=== PATIENT | male | born 1960 | race Caucasian/White ===

== ENCOUNTER → 2016-04-25 | Outpatient (CLI) | payer OTHER ==
[~2016-04-25] MED LIST: AMLO5TAB2 PO; ASPI-482 PO; ATOR20TA58; CELE200C PO; CHOL10003 PO; CYAN10005 PO; DAPA10TA; FURO-68 PO; INSU100I15 SQ; INSU100I27; INSU100V13 SQ; LINE600T PO; LISI1TAB7 PO; LISI40TA; METF500T4 PO; OMEP20CA9 PO; POTA10TA31 PO; PREG150C PO; PREG200C; SITA1TAB11; TRAM200T17
--- NOTE | 2016-04-25 16:44 | RAD ---
PROCEDURE MRI of the cervical spine without contrast 04/25/2016 HISTORY Neck pain with bilateral arm pain. TECHNIQUE Unenhanced T1 weighted, T2 weighted and inversion recovery sagittal and gradient echo and T2 weighted axial images of the cervical spine were obtained. FINDINGS Comparison study is dated 11/12/2012. Very mild lateral curvature of the cervical spine is seen convex to the left. There is slight reversal of the normal cervical lordosis. Degenerative signal changes are seen involving all of the discs of the cervical spine. Degenerative signal changes are seen within the marrow surrounding these discs. No area of abnormal signal intensity is seen involving the cervical spinal cord. At the C2-3 and C3-4 disc spaces there are mild generalized disc bulges. Degenerative changes are seen involving the uncovertebral and facet joints bilaterally. These findings do not result in significant central spinal canal or neural foraminal stenosis. At the C4-5 disc space there is a mild to moderate generalized disc bulge. This is eccentric to the right. Superimposed on this disc bulge is a right paracentral disc osteophyte complex. This measures 3 millimeters in AP diameter. Degenerative changes are seen involving the uncovertebral and facet joints, right greater than left. These findings efface the anterior and posterior CSF resulting in mild right greater than left central spinal canal stenosis without significant cord impingement. Mild right neural foraminal stenosis is seen. The left neural foramina is patent. At the C5-6 disc space there is a mild to moderate generalized disc bulge. This is eccentric to the left. Degenerative changes are seen involving the uncovertebral and facet joints, left greater than right. These findings result in mild left-sided central spinal canal stenosis without evidence of cord impingement. No neural foraminal stenosis is seen. At the C6-7 disc space there is a mild to moderate generalized disc bulge. Superimposed on this disc bulge is a right paracentral/lateral disc osteophyte complex. This measures 3 millimeters in AP diameter degenerative changes are seen involving the uncovertebral and facet joints, right greater than left. These findings do not result in significant central spinal canal stenosis. Mild to moderate right greater than left neural foraminal stenosis is seen. At the C7-T1 disc space there is a mild generalized disc bulge. This is eccentric to the right. Degenerative changes are seen involving the uncovertebral and facet joints, right greater than left. These findings do not result in significant central spinal canal or neural foraminal stenosis. The degenerative changes have increased slightly since the previous examination. IMPRESSION Degenerative changes are seen throughout the cervical spine. These findings result in mild right greater than left central spinal canal stenosis at C4-5 and mild left-sided central spinal canal stenosis at C5-6 without evidence of cord impingement. Mild right neural foraminal stenosis is seen at C4-5. Mild to moderate right greater than left neural foraminal stenosis is seen at C6-7. Electronically signed by: Uri Rosas MD (Apr 25, 2016 16:42:55)
== END | disposition home or self-care (01) ==
LOC: MRI 10:40
DX: M54.2 Cervicalgia (principal); M48.02 Spinal stenosis, cervical region
CPT/HCPCS: 72141

== ENCOUNTER → 2016-05-28 | Outpatient (CLI) | payer OTHER ==
[~2016-05-28] MED LIST changes: +INSU3INS2 SQ; +IOHEXOL 180 MG/ML 10 ML VIAL. ONE; +methylPREDNISolone ACETATE 40 MG/ML VIAL. ONE; +methylPREDNISolone ACETATE 80 MG/ML VIAL. ONE
--- NOTE | 2016-05-29 21:09 | PAIN ---
DATE OF SERVICE: 05/28/2016 DIAGNOSES: Cervical radiculopathy with cervical degenerative disk disease and cervical spinal stenosis. HISTORY OF PRESENT ILLNESS: The patient is a 55-year-old male who presents with history of chief complaint of pain at the base of the neck and right upper extremity for several years, worse over the past year or so. The patient reports the pain has been getting worse, not with any specific injury or action he is aware of, just has been gradually increasing. 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 The patient reports that with his neck and right upper extremity he is having radiation of pain into the right posterior shoulder, base of the neck, base of the head causing some headaches, lightheadedness and dizziness at times as well when the pain is at its worse, again usually with using his right upper extremity and daily activities. The patient reports it is constant, intermittent, radiating into the right arm, mostly into the hand with tingling and numbness occasionally, but not always, mostly into the shoulder and upper arm, still some pain in the mid back as well. The patient reports it as aching pain in the right arm as well. He is right handed. The patient reports it wakes him up multiple times at night, does not affect his bowel and bladder control, but does affect his ability to walk sometimes when he has some dizziness spells from headaches that come when the pain is worse in the base of the neck and the right shoulder. The patient reports he has had some chiropractic therapy which all helps significantly the day he has the therapy, but by the next day, it is right back where it was. The patient has some physical therapy in the past which was not significantly helpful that he recalls. He did have an MRI scan of the cervical spine showing degenerative changes throughout the multiple levels of the spine resulting in right greater than left central spinal canal stenosis at C4-C5, mild left-sided central spinal canal stenosis at C5-C6 without evidence of cord impingement, mild right neural foraminal stenosis at C4-C5, mild to moderate right greater than left neural foraminal stenosis at C6-C7. The patient rates his disability rate from 0 to 10, 10 being the worst is anywhere from 1-9 with family and home responsibilities, recreation, social activity, occupation, sexual behavior, self care and life support activities with flaring to 9 on a scale of 10 with all those categories, but not constantly at that level. The patient is taking Tylenol, also Nan aspirin, Nan Back and Body formula which helps some by about 10-20% at the most. The patient reports no loss of motor function, no significant radiation into left upper extremity, but significant fatigability in the right arm with activity, even getting dressed, putting his arms over his head and repetitive motions with the right hand or arm. He has not been dropping any items, but has significant fatigue in the right arm with the pain. PAST MEDICAL HISTORY: Significant for type 2 diabetes, hearing loss, hypertension, chest pain, dizziness, headaches, peripheral neuropathy in the feet, difficulty with healing ulcers in the left foot as well. PREVIOUS SURGERIES: Include ulcer surgery and hernia repair 2 years ago, foot debridement and tonsillectomy at age 10. CURRENT MEDICATIONS: Include insulin, atorvastatin, Janumet, lisinopril, Farxiga, Lyrica, tramadol, Celebrex, Zyvox, amlodipine, omeprazole, daily baby aspirin, vitamin D3 and vitamin B12. ALLERGIES: The patient is allergic to nonsteroidal anti-inflammatories, which cause swelling of his mouth. FAMILY HISTORY: Significant for diabetes. SOCIAL HISTORY: The patient does not smoke, drinks 4-6 drinks a month on average, alcoholic drinks. He is single, lives on his own in [place], [place] and works at the [employer] in [place]. REVIEW OF SYSTEMS: The patient's review of systems is positive for those items mentioned in history of present illness. All systems reviewed and otherwise negative. It is complete, full and well documented on the patient's chart. PHYSICAL EXAMINATION: VITAL SIGNS: Today, the patient's blood pressure is 126/62, pulse 83, respirations are 18, temperature 98.4 degrees Fahrenheit. Height is 6 feet, weight is 252 pounds. GENERAL: The patient is awake, alert, oriented, appropriate, very pleasant demeanor. HEENT: Shows normocephalic, atraumatic. Extraocular movements are intact and symmetrical. Oral cavity shows mucous membranes are moist and pink. Dentition is intact. NECK: Shows anterior throat supple without palpable lymphadenopathy noted. Swallow reflex is symmetrical. No previous scars are noted. CHEST: Shows normal on inspection with breath sounds clear to auscultation bilaterally. HEART: Shows S1 and S2 clear. No murmurs are auscultated. ABDOMEN: Shows no abnormalities on appearance. He is obese, soft, nontender, nondistended. No palpable organomegaly with no rebound or guarding demonstrated with palpation. BACK: The patient's back shows spine grossly in midline, normal-appearing cervical lordotic curvature, thoracic kyphotic curvature and lumbar lordotic curvature. The patient has some tattooing on the upper back and shoulders. Cervical paraspinous muscle shows some moderate tenderness with palpation throughout the upper, middle and lower distribution, worse in the middle and lower distribution, but present throughout and diffuse tenderness in a diffuse fashion. No tenderness over the spinous processes. The musculature is firm and normal in muscle girth, tender diffusely again in the middle and lower distribution, also into the right superior medial and lateral trapezius with palpation, but again no asymmetry noted from inspection on the left side. No trigger points or radiation of pain. The patient does show good rotation and motion with some minor guarding with extension and right lateral rotation, but perform this fully past 45 degrees right and left without difficulty and full forward flexion without difficulty or pain reported as well. EXTREMITIES: Upper extremities showed deep tendon reflexes at 2+ in the biceps and triceps tendons. Motor exam is strong with approximately 4 on a scale 5 with right legal paraprofessional strength and 5/5 on the left bicep and tricep flexion, likewise 4/5 on the right and 5/5 on the left, but intact. Peripheral pulses are 2+ in radial distribution. No peripheral edema is noted. No clubbing, no cyanosis. Upper extremities are warm and dry to touch, equal in color and appearance. Shoulder shrug is strong and intact without loss of strength and resistance. The patient does report pain in the base of the neck on the right side and radiating to the right posterior scapula with resistance which is relieved without resistance. Abduction of the shoulder to 90 degrees also is intact without loss of strength and resistance, but with pain in the right scapula and into the right posterior deltoid with resistance on the right side only. IMPRESSION: 1. This is a 55-year-old male with long history of approximately 3 years increasing pain in the base of the neck, right upper extremity, worse over the past year or so in radicular fashion. 2. MRI scan as noted. 3. History of hypertension. 4. History of diabetes. PLAN: Options were discussed with the patient including conservative medical management with physical therapy and interventional technique. He would like to pursue interventional techniques. We discussed a cervical epidural steroid injection using description as well as anatomical models to describe the procedure. Risks were then discussed including, but not limited to bleeding, infection, possibility of epidural hematoma and subsequent neurological compromise, dural puncture, headaches, spinal cord and/or nerve damage, side effects of steroid medication and poor results regarding pain control. The patient understands and wishes to proceed. The patient will return to the clinic in approximately 2 weeks for followup, was counseled on return appointment, activity level and side effects to be aware of. DIAGNOSES: Cervical radiculopathy with cervical spinal stenosis and cervical degenerative disk disease. PROCEDURE: Cervical epidural steroid injection in translaminar approach at the C6-C7 level with fluoroscopic guidance under sterile prep and drape using local anesthetic. Medications injected 120 mg of Depo-Medrol plus 5 mL of preservative-free normal saline and 2 mL of Isovue for contrast. CONDITION AT DISCHARGE: Stable. The patient tolerated the procedure well, had no complications. MAURO SERRANO MD DR: VERITO/gabriel JOB#: [id number] / [id number]
== END | disposition home or self-care (01) ==
LOC: PNCL 12:06
PROVIDERS: ATTEND Anesthesiology
DX: M50.123 Cervical disc disorder at C6-C7 level with radiculopathy (principal); I10 Essential (primary) hypertension; E11.9 Type 2 diabetes mellitus without complications; M48.02 Spinal stenosis, cervical region
CPT/HCPCS: 62321; J1030; J1040

== ENCOUNTER → 2016-06-09 | Outpatient (CLI) | payer OTHER ==
[~2016-06-09] MED LIST changes: -IOHEXOL 180 MG/ML 10 ML VIAL. ONE; -methylPREDNISolone ACETATE 40 MG/ML VIAL. ONE; -methylPREDNISolone ACETATE 80 MG/ML VIAL. ONE
[2016-06-09 12:30] VITALS: BP 90/63
== END | disposition home or self-care (01) ==
LOC: SPEC 16:24
PROVIDERS: ATTEND Podiatrist Foot & Ankle Surgery
DX: L03.029 Acute lymphangitis of unspecified finger (principal); E11.42 Type 2 diabetes mellitus with diabetic polyneuropathy
CPT/HCPCS: 87071; 87075; 87186; 87205

== ENCOUNTER 2016-06-13 11:26 | Inpatient (IN) | payer OTHER ==
[~2016-06-13] VITALS: Ht 182.9 cm; Wt 107.5 kg
[2016-06-13 12:00] VITALS: BP 88/55
[2016-06-13 13:00] VITALS: BP 88/55
[2016-06-13] MEDS ORDERED: HYDROCODONE/APAP 5/325MG TABLET. PO PRN (13:00)
[2016-06-13] MEDS ORDERED: ACETAMINOPHEN 325 MG TABLET. PO PRN (13:00)
[2016-06-13] MEDS ORDERED: hydrALAZINE 20 MG/ML VIAL. IVP PRN (13:00)
[2016-06-13] MEDS ORDERED: ONDANSETRON PF 4 MG/2 ML VIAL. IV PRN (13:00)
[2016-06-13] MEDS ORDERED: VANCOMYCIN PER PHARMACY MC PRN (13:00)
[2016-06-13] MEDS ORDERED: DEXTROSE 50% 25 GM / 50ML DISP.SYRIN. IV PRN (13:00)
--- NOTE | 2016-06-13 13:02 | PDOC1 ---
History and Physical Identification/Chief Complaint Chief Complaint foot wounds Problems: Past Medical History Past Medical History DM HTN NEUROPATHY Social History Smoke: No ALCOHOL: rare Current Medications Current Medications Current Medications Medications (Trade) Dose Ordered Sig/Bart Start Time Stop Time Status Last Admin Dose Admin Acetaminophen (Tylenol) 325 mg PRN Q6HRS PRN 06/13/16 13:00 UNV Acetaminophen/ Hydrocodone Bitart (Lortab 5/325) 1 tab PRN Q6HRS PRN 06/13/16 13:00 UNV Albuterol Sulfate (Ventolin Neb Soln) 2.5 mg PRN Q4HRS PRN 06/13/16 13:00 UNV Dextrose 12.5 gm 12.5 gm PRN Q15MIN PRN 06/13/16 13:00 UNV Hydralazine HCl (Apresoline) 10 mg PRN Q4HRS PRN 06/13/16 13:00 UNV Insulin Aspart (Novolog) 0-9 UNITS TIDWMEALS 06/13/16 17:00 UNV Ondansetron HCl (Zofran) 4 mg PRN Q8HRS PRN 06/13/16 13:00 UNV Piperacillin Sod/ Tazobactam Sod/ Sodium Chloride (Zosyn/Iv Sodium Chloride 0.9% 50ml) 50 ml @ 100 mls/hr Q6HRS 06/13/16 18:00 UNV Vancomycin HCl (Vanco Per Pharmacy) 1 each PRN DAILY PRN 06/13/16 13:00 UNV Allergies Allergies Allergies Coded Allergies Type Severity Reaction Last Updated Verified ibuprofen Allergy Severe SWELLING OF FACE - HIVES 06/10/16 Yes I S O L A T I O N *CONTACT* Allergy Unknown 06/10/16 Yes ROS Review of System CONSTITUTIONAL: No fever or chills EYES: No recent changes SKIN: wound foot CARDIOVASCULAR: No chest pain, syncope, palpitations, or edema RESPIRATORY: No SOB or cough GASTROINTESTINAL: No nausea, vomiting or abdominal pain NEUROLOGICAL: No headaches or weakness ENDOCRINE: No cold or heat intolerance GENITOURINARY: No urgency or frequency of urination MUSCULOSKELETAL: No back pain or joint pain LYMPHATICS: No enlarged lymph nodes PSYCHIATRIC: No anxiety or depression Physical Exam Physical Exam GEN.: No apparent distress. Alert and oriented. HEENT: Head is normocephalic, atraumatic NECK: Supple. no jvd LUNGS: Clear to auscultation. normal airflow HEART: RRR, S1, S2 present. Peripheral pulses intact ABDOMEN: Soft, nontender. Positive bowel sounds. EXTREMITIES: pulse intact, left 2nd toe ulcer at tip, right MTP wound. NEUROLOGIC: Normal speech, normal tone PSYCHIATRIC: Normal affect, normal mood. SKIN: Vitals Vitals Vital Signs Date Time Temp Pulse Resp B/P Pulse Ox O2 Delivery O2 Flow Rate FiO2 06/13/16 12:00 98.4 98 88/55 Room Air 96.0 98.4 Labs Labs Laboratory Tests Test 06/13/16 12:05 Glucose (Fingerstick) 219mg/dL (70-99) Laboratory Tests Test 06/13/16 12:05 Glucose (Fingerstick) 219mg/dL (70-99) VTE Prophylaxis Ordered VTE Prophylaxis Devices: No VTE Pharmacological Prophylaxi: No DAVID TSE MD Jun 13, 2016 13:02
[2016-06-13] MEDS ORDERED: PIPERACILLIN/TAZOBACTAM 3.375 GM in IV NORMAL SALINE 50ML 50 ML IV ONE (13:15)
[2016-06-13] MEDS ORDERED: VANCOMYCIN 2 GM in IV NORMAL SALINE 500ML BAG 500 ML IV ONE (13:30)
[2016-06-13 13:40] LABS: BASO # 0.1 x10^3/uL (0.0-0.2); BASO % 1 % (0-3); EOS % 1 % (0-3); HEMATOCRIT 43.3 % (39.0-53.0); LYMPH # 2.9 x10^3/uL (1.0-4.8); LYMPH % 22 % (24-48); MEAN CORPUSCULAR HEMOGLOBIN 29 pg (25-35); MEAN CORPUSCULAR HGB CONC 32 g/dL (31-37); MEAN CORPUSCULAR VOLUME 89 fL (79-100); MONO % 11 % (0-9); NEUT % 65 % (31-73); PLATELET COUNT 293 x10^3/uL (140-400); RED BLOOD COUNT 4.88 x10^6/uL (4.30-5.70); RED CELL DISTRIBUTION WIDTH 14.3 % (11.5-14.5)
[2016-06-13 13:54] LABS: C-REACTIVE PROTEIN 86.6 mg/L (0-3.3); CALCIUM 9.6 mg/dL (8.5-10.1); CREATININE 1.2 mg/dL (0.7-1.3); GFR 63.3
[2016-06-13 15:00] VITALS: BP 105/42
--- NOTE | 2016-06-13 15:14 | RAD ---
Portable bilateral feet, 6 views, 06/13/2016: History: Foot infection with ulcers There are degenerative changes at scattered interphalangeal joints, the first MTP joints and at the midfoot level bilaterally. No fracture or destructive bony lesion is seen. There is mild subcutaneous edema bilaterally. IMPRESSION: No acute bony abnormality is detected.
[2016-06-13] MEDS: VANCOMYCIN PER PHARMACY MC PRN (16:49)
[2016-06-13] MEDS: AMLODIPINE BESYLATE 5 MG TABLET PO SCH (17:00)
[2016-06-13] MEDS: LISINOPRIL 40 MG TABLET. PO SCH (17:00)
[2016-06-13] MEDS: ALBUTEROL SULFATE 2.5 MG/3 ML NEBU. NEB PRN (17:24)
[2016-06-13] MEDS: PANTOPRAZOLE 40 MG TABLET. PO SCH (17:31)
[2016-06-13] MEDS: INSULIN ASPART 300 UNITS/3 ML INSULN.PEN SQ SCH (17:37)
--- NOTE | 2016-06-13 17:42 | HP ---
ADMIT DATE: 06/13/2016 CHIEF COMPLAINT: Bilateral foot wounds, nonhealing. HISTORY OF PRESENT ILLNESS: A 55-year-old male patient with prior history of diabetes mellitus, hypertension, following up with Dr. Dave, for his bilateral foot wounds. He was prescribed Augmentin few days ago. On repeat examination by Dr. Dave, the patient needs inpatient hospitalization for IV antibiotics for purulent exudate coming from the right foot metacarpophalangeal joint region. He had 2 wounds, one on the left and one on the right. Right metatarsophalangeal joint has erythema, induration and purulent secretions coming and also worsening neuropathy in right extremity and also he had a left second digit nonhealing ulcer is present. He denies any fever; however, has some cough. PAST MEDICAL HISTORY: Hypertension, diabetes and polyneuropathy. FAMILY HISTORY: Mother had diabetes and non-Hodgkin lymphoma. PERSONAL HISTORY: No smoker, no alcohol, no drug abuse. REVIEW OF SYSTEMS: Please see my electronic H and P. ALLERGIES: IBUPROFEN. HOME MEDICATIONS: Reviewed and reconciled. Please see MRAD. ASSESSMENT: 1. Bilateral diabetic foot wounds, Right metacarpophalangeal joint, plantar surface and Left second digit. 2. Diabetes mellitus with hyperglycemia. 3. Hypertension. 4. Peripheral neuropathy. PLAN: 1. The patient has been admitted for med/surg floor and started on broad-spectrum antibiotics, Zosyn and vancomycin. Do renal dosing of vancomycin and he will get x-ray of the foot to rule out any osteomyelitis. 2. Infectious Disease has been consulted. 3. Dr. Dave has been consulted, possible debridement on either Thursday or Thursday. 4. Sliding scale insulin with home dose of Levemir. 5. Deep venous thrombosis prophylaxis. 6. He was treated with Augmentin at home; however, he did not improve, suspected methicillin-resistant Staphylococcus aureus infection. 7. Wound cx DAVID TSE MD DR: PB/nts JOB#: [id number] / [id number] OKD
[2016-06-13 19:00] VITALS: BP 87/53
[2016-06-13] MEDS: ATORVASTATIN CALCIUM 20 MG TABLET PO SCH (21:19)
[2016-06-13] MEDS: PREGABALIN 50 MG CAPSULE PO SCH (21:23)
[2016-06-13] MEDS: PIPERACILLIN/TAZOBACTAM 3.375 GM in IV NORMAL SALINE 50ML 50 ML IV SCH (21:23)
[2016-06-13] MEDS: TEMAZEPAM 15 MG CAPSULE PO PRN (22:33)
[2016-06-13 23:00] VITALS: BP 90/49
[2016-06-14 02:49] VITALS: BP 96/57
[2016-06-14] MEDS: VANCOMYCIN 1.5 GM in IV NORMAL SALINE 500ML BAG 500 ML IV SCH ×2 (04:00→16:19)
[2016-06-14] MEDS: PIPERACILLIN/TAZOBACTAM 3.375 GM in IV NORMAL SALINE 50ML 50 ML IV SCH ×6 (06:00→23:21)
[2016-06-14 06:53] LABS: BASO % 1 % (0-3); EOS % 2 % (0-3); HEMATOCRIT 41.2 % (39.0-53.0); HEMOGLOBIN 13.3 g/dL (13.0-17.5); LYMPH # 2.2 x10^3/uL (1.0-4.8); LYMPH % 28 % (24-48); MEAN CORPUSCULAR HEMOGLOBIN 29 pg (25-35); MEAN CORPUSCULAR HGB CONC 32 g/dL (31-37); MEAN CORPUSCULAR VOLUME 89 fL (79-100); MONO % 12 % (0-9); NEUT % 57 % (31-73); PLATELET COUNT 278 x10^3/uL (140-400); RED BLOOD COUNT 4.62 x10^6/uL (4.30-5.70); RED CELL DISTRIBUTION WIDTH 14.4 % (11.5-14.5); WHITE BLOOD COUNT 7.7 x10^3/uL (4.0-11.0)
[2016-06-14 06:59] LABS: CALCIUM 9.5 mg/dL (8.5-10.1); CREATININE 1.1 mg/dL (0.7-1.3); POTASSIUM 4.7 mmol/L (3.5-5.1)
[2016-06-14 07:00] VITALS: BP 119/78
[2016-06-14] MEDS: PANTOPRAZOLE 40 MG TABLET. PO SCH (08:18)
[2016-06-14] MEDS: PREGABALIN 50 MG CAPSULE PO SCH ×2 (08:18→21:39)
[2016-06-14] MEDS: AMLODIPINE BESYLATE 5 MG TABLET PO SCH (08:19)
[2016-06-14] MEDS: LISINOPRIL 40 MG TABLET. PO SCH (08:20)
[2016-06-14] MEDS: INSULIN ASPART 300 UNITS/3 ML INSULN.PEN SQ SCH ×3 (08:27→17:21)
[2016-06-14 11:00] VITALS: BP 92/58
[2016-06-14] MEDS: VANCOMYCIN PER PHARMACY MC PRN (12:29)
--- NOTE | 2016-06-14 14:24 | CONS ---
DATE OF CONSULTATION: 06/13/2016 DIAGNOSES: 1. Abscess with cellulitis, right plantar forefoot. 2. Clinical evidence of osteomyelitis with diabetic foot ulceration, second digit, left foot. 3. 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 HISTORY OF PRESENT ILLNESS: The patient is a 55-year-old male presented to my private clinic this morning for followup of a newly exposed bone on the second digit of the left foot and chronic ulcerations, bilateral foot. The patient has been seen in my office just 4 days ago with a new wound on the second digit, which is extending all the way down to bone. I had placed him on Augmentin at that time and applied a dressing. I advised him to follow in just 4 days. Upon presentation today, the patient had new complaints of redness, swelling and intense pain in the right forefoot. Upon questioning, he stated that he was also having flu-like symptoms with cough for the past few days and that a couple of days he was just lying in bed. He denied any fever, night sweats, chills or vomiting. He has been off work in order to attempt to ____ the wound sites and allow his wounds to heal. PHYSICAL EXAMINATION: Lower extremities vasculature: Palpable dorsalis pedis pulse bilateral foot. Palpable posterior tibial pulse bilateral foot. No pretibial or ankle edema bilateral lower extremity. No varicosities bilateral lower extremity. Integument: The left foot exhibited a deep wound about the distal aspect of the second digit of the left foot with exposed bone. The erythema and edema extends to the mid shaft region of the middle phalanx with no ascending cellulitis or lymphangitis noted on the left lower extremity. In addition, there is an open wound, plantar to the left first metatarsal head measuring 9 x 6 x 1 mm extending through the full thickness skin with no surrounding erythema, calor or induration. Regarding the right foot, there is a deep wound, plantar to the right first metatarsophalangeal joint with localized erythema and calor and induration extending just proximal to the first metatarsophalangeal joint region and mid shaft of the first metatarsal itself. This wound probed deep into the subcutaneous tissues and exhibited moderate amount of white purulent exudate which was expressed from the patient's wound today prior to swabbing for aerobic and anaerobic culture and sensitivity. Neurologically sensorium is diminished to sharp on light touch. The patient has lost his protective sense. Musculoskeletally evidence of exposed bone, distal phalanx, second digit, left foot. Flexion contracture of the interphalangeal joints ____ digits bilateral foot. RECOMMENDATIONS: The patient's wound was incised and debrided on the right foot as noted above and cultured for aerobic and anaerobic culture and sensitivity. In addition, I spoke with Dr. Hernandez, the hospitalist from my clinic who directly admit the patient onto his service. He also agreed to an Infectious Disease consultation as the patient was just in the hospital 2 months ago with MRSA. As this wound is not responding to Augmentin, which the patient has been on for 4 days and with the purulent exudate, this may well be MRSA again. At bedside today near 4:15 in the afternoon, I visited the patient, at which time, I used a sterile 10 blade after an alcohol prep to incise approximately another 0.5 cm of the plantar wound site in order to access the underlying abscess. A small amount of purulent exudate was expressed. Next, I utilized a pressurized saline and ____ in order to irrigate the wound base. I then inserted Aquacel Ag drain into the wound, covered by a gauze compression dressing. The left foot wounds were also dressed with Aquacel Ag and a gauze dressing. These are to be maintained until I follow with the patient on Thursday. The IV antibiotic was running at the time of my visit: The patient was already feeling better. I have scheduled him for a partial amputation of the second digit of the left foot this Thursday06/17/2016 at [facility]. Ordered n.p.o. after midnight. In addition, it should be noted that I reviewed his x-rays interpreted by radiologist with no signs of a bony infection. I will follow on Thursday barring any complaints or calls from the nursing staff in the meantime. YESICA PAINTER DPM DR: TERESA/gabriel JOB#: [id number] / [id number]
[2016-06-14 15:00] VITALS: BP 113/70
--- NOTE | 2016-06-14 15:25 | PDOC ---
PROGRESS NOTES Chief Complaint Chief Complaint Diabetic foot ulcers ASSESSMENT AND PLAN: 1. Bilateral diabetic foot wounds, (R metacarpophalangeal joint, plantar surface, and L second digit.) s/p debridement in office by Dr Dave on 06/12. nonhealing, with hx MRSA, and nonresponse to PO Abx at home. on Zosyn/Vanco, ID consult pending. no bony abn noted on Xrays. 2. DM2: fair control.on oral meds as well as levemir. hold janumet (metformin ) for now, cont trajenta, re-start insulin, plus ISS 3. diabetic neuropathy: on lyrica 4. HTN: well controlled on multi-drug home regimen. continue 5. HLD: on statin 6. Prophylaxis: lovenox Vitals Vitals Vital Signs Date Time Temp Pulse Resp B/P Pulse Ox O2 Delivery O2 Flow Rate FiO2 06/14/16 11:00 97.8 84 20 92/58 98 Room Air 97.8 Physical Exam General: Alert, Oriented X3, Cooperative Heart: Regular rate Lungs: Clear Abdomen: Normal bowel sounds, No tenderness, No masses Extremities: Other (B distal feet in gauze) Labs LABS Laboratory Tests Test 06/13/16 17:16 06/13/16 20:40 06/14/16 06:10 06/14/16 07:30 Glucose (Fingerstick) 207mg/dL (70-99) 236mg/dL (70-99) 175mg/dL (70-99) White Blood Count 7.7x10^3/uL (4.0-11.0) Red Blood Count 4.62x10^6/uL (4.30-5.70) Hemoglobin 13.3g/dL (13.0-17.5) Hematocrit 41.2% (39.0-53.0) Mean Corpuscular Volume 89fL (79-100) Mean Corpuscular Hemoglobin 29pg (25-35) Mean Corpuscular Hemoglobin Concent 32g/dL (31-37) Red Cell Distribution Width 14.4% (11.5-14.5) Platelet Count 278x10^3/uL (140-400) Neutrophils (%) (Auto) 57% (31-73) Lymphocytes (%) (Auto) 28% (24-48) Monocytes (%) (Auto) 12% (0-9) Eosinophils (%) (Auto) 2% (0-3) Basophils (%) (Auto) 1% (0-3) Neutrophils # (Auto) 4.4x10^3uL (1.8-7.7) Lymphocytes # (Auto) 2.2x10^3/uL (1.0-4.8) Monocytes # (Auto) 0.9x10^3/uL (0.0-1.1) Eosinophils # (Auto) 0.2x10^3/uL (0.0-0.7) Basophils # (Auto) 0.0x10^3/uL (0.0-0.2) Sodium Level 139mmol/L (136-145) Potassium Level 4.7mmol/L (3.5-5.1) Chloride Level 101mmol/L (98-107) Carbon Dioxide Level 27mmol/L (21-32) Anion Gap 11 (6-14) Blood Urea Nitrogen 26mg/dL (8-26) Creatinine 1.1mg/dL (0.7-1.3) Estimated GFR (Cockcroft-Gault) 70.0 Glucose Level 191mg/dL (70-99) Calcium Level 9.5mg/dL (8.5-10.1) Test 06/14/16 10:57 Glucose (Fingerstick) 182mg/dL (70-99) Review of Systems Review of Systems doing ok, although not happy to be back in hospital Comment Review of Relevant ISABELA CARIAS MD Jun 14, 2016 15:25
--- NOTE | 2016-06-14 15:57 | PDOC ---
Infectious Disease Note Vital Sign Vital Signs Vital Signs Date Time Temp Pulse Resp B/P Pulse Ox O2 Delivery O2 Flow Rate FiO2 06/14/16 15:00 97.4 85 20 113/70 91 Room Air 97.4 Labs Lab Laboratory Tests Test 06/13/16 17:16 06/13/16 20:40 06/14/16 06:10 06/14/16 07:30 Glucose (Fingerstick) 207mg/dL (70-99) 236mg/dL (70-99) 175mg/dL (70-99) White Blood Count 7.7x10^3/uL (4.0-11.0) Red Blood Count 4.62x10^6/uL (4.30-5.70) Hemoglobin 13.3g/dL (13.0-17.5) Hematocrit 41.2% (39.0-53.0) Mean Corpuscular Volume 89fL (79-100) Mean Corpuscular Hemoglobin 29pg (25-35) Mean Corpuscular Hemoglobin Concent 32g/dL (31-37) Red Cell Distribution Width 14.4% (11.5-14.5) Platelet Count 278x10^3/uL (140-400) Neutrophils (%) (Auto) 57% (31-73) Lymphocytes (%) (Auto) 28% (24-48) Monocytes (%) (Auto) 12% (0-9) Eosinophils (%) (Auto) 2% (0-3) Basophils (%) (Auto) 1% (0-3) Neutrophils # (Auto) 4.4x10^3uL (1.8-7.7) Lymphocytes # (Auto) 2.2x10^3/uL (1.0-4.8) Monocytes # (Auto) 0.9x10^3/uL (0.0-1.1) Eosinophils # (Auto) 0.2x10^3/uL (0.0-0.7) Basophils # (Auto) 0.0x10^3/uL (0.0-0.2) Sodium Level 139mmol/L (136-145) Potassium Level 4.7mmol/L (3.5-5.1) Chloride Level 101mmol/L (98-107) Carbon Dioxide Level 27mmol/L (21-32) Anion Gap 11 (6-14) Blood Urea Nitrogen 26mg/dL (8-26) Creatinine 1.1mg/dL (0.7-1.3) Estimated GFR (Cockcroft-Gault) 70.0 Glucose Level 191mg/dL (70-99) Calcium Level 9.5mg/dL (8.5-10.1) Test 06/14/16 10:57 Glucose (Fingerstick) 182mg/dL (70-99) Objective Assessment Cellulitis and abscess of diabetic wound of right foot. s/p I and D. Staph aureus Infected diabetic wound with bone exposure of 2nd digit of left foot. Chronic nonhealing diabetic wounds, bilateral feet Diabetes with neuropathy URI Plan Plan of Care Continue vancomycin and Zosyn Pt scheduled for partial amputation of 2nd toe of left foot on Thursday. Monitor WBC, Cr and temp f/u cultures Supportive care Thank you Patient seen and examined. Chart reviewed. Case discussed with INTERNATIONAL MARKETING MANAGER. Agree with above plan ELIZABETH LAYTON APRN Jun 14, 2016 15:57 JAMEL JOSEPH MD Jun 14, 2016 16:55
[2016-06-14 20:10] VITALS: BP 97/60
[2016-06-14] MEDS: ATORVASTATIN CALCIUM 20 MG TABLET PO SCH (21:39)
[2016-06-14] MEDS: TEMAZEPAM 15 MG CAPSULE PO PRN (21:40)
[2016-06-14] MEDS: INSULIN DETEMIR 300 UNITS/3 ML INSULN.PEN. SQ SCH (21:49)
[2016-06-14 23:05] VITALS: BP 97/69
--- NOTE | 2016-06-15 01:51 | CONS ---
DATE OF CONSULTATION: REFERRING PHYSICIAN: Dr. Julio Hernandez. REASON FOR CONSULTATION: Questionable osteomyelitis of foot. HISTORY OF PRESENT ILLNESS: This patient is a 55-year-old male with a history of diabetes mellitus and peripheral neuropathy. He is followed by Dr. Dave, Podiatry for chronic nonhealing ulcerations of both feet. Recently, he developed another ulceration at the left second toe, which became red and swollen with bone exposure. He was taking Augmentin without improvement. X-ray showed no acute bony abnormalities. He underwent a bedside I and D of the left second toe. He is scheduled for a partial amputation on 06/17/2016. In addition, he underwent a bedside I and D of the right plantar wound, which was noted to be deep into subcutaneous tissues with purulent drainage. A culture is growing Staphylococcus aureus. He has a prior history of MRSA infection of the left foot in 03/2016. PAST MEDICAL HISTORY: MRSA infection of the left foot in 03/2016, diabetes mellitus, peripheral neuropathy, hypertension, and hypercholesterolemia. PAST SURGICAL HISTORY: Hernia repair, cardiac catheterization, and tonsillectomy. FAMILY HISTORY: Positive for diabetes mellitus and cancer. SOCIAL HISTORY: The patient lives at home. He has been out of work due to his diabetes. He normally works at the [employer] standing all day. Nonsmoker, however, he is exposed to secondhand smoke. ALLERGIES: IBUPROFEN. MEDICATIONS: Vancomycin and Zosyn. Other medications are available and had been reviewed on the JUN. REVIEW OF SYSTEMS: The patient verbalized discomfort at the moment. He has decreased sensation in both feet. Denies trauma or injury. His glucose readings had been running in the 200s. Denies headache, nasal/sinus congestion or sore throat. Over the past couple of days, he has had a cough and flu-like symptoms. Denies fevers, chills or aches. Denies nausea, vomiting or diarrhea. Denies rash. PHYSICAL EXAMINATION: GENERAL: male, propped up in bed, in no apparent distress. VITAL SIGNS: Afebrile. Stable. HEENT: Pupils equally round. Normal conjunctivae. Oral mucosa is pink and moist. NECK: Supple. LUNGS: Clear to auscultation. CARDIOVASCULAR: Normal S1 and S2. ABDOMEN: Nondistended, bowel sounds present, soft and nontender. EXTREMITIES: No gross edema or cyanosis. Dressings on both feet are dry and intact with instructions not to remove. Pictures were reviewed in chart. SKIN: Without rash. Warm to touch. NEUROLOGIC: Alert and oriented x 3. Moves all extremities. LABORATORY DATA: Today's WBC 7.1 from 13.0 on admission, hemoglobin 13.3, and platelet count 278,000. Sed rate 43. Electrolytes were unremarkable. Creatinine 1.1, BUN 26, and glucose 191. CRP 86.6. Wound culture is growing Staphylococcus aureus. Sensitivities pending. Bilateral foot x-ray shows mild subcutaneous edema without acute bony abnormalities. ASSESSMENT: 1. Cellulitis and abscess of diabetic wound of right foot, status post incision and drainage. 2. Infected diabetic wound with bone exposure of the second digit of left foot. 3. Staphylococcus aureus. 4. Diabetes with neuropathy. 5. Chronic nonhealing diabetic wounds, bilateral feet. 6. Upper respiratory infection. PLAN: Continue the vancomycin and Zosyn. The patient is scheduled for partial amputation of the second toe of left foot on Thursday. Monitor WBC count, creatinine, and temperature. Await sensitivities. Consider arterial studies. Supportive care. Thank you, Dr. David Jennings for asking me to participate in this patient's care. Should you have further questions or concerns, please call. The patient is seen and examined, plan of care implemented by Dr. Jamel Joseph. JAMEL JOSEPH MD DR: CHIDI/gabriel JOB#: [id number] / [id number] VENECIA
[2016-06-15 03:23] VITALS: BP 122/82
[2016-06-15 05:29] LABS: BASO # 0.1 x10^3/uL (0.0-0.2); BASO % 1 % (0-3); EOS % 2 % (0-3); HEMATOCRIT 41.4 % (39.0-53.0); HEMOGLOBIN 13.7 g/dL (13.0-17.5); LYMPH # 2.3 x10^3/uL (1.0-4.8); LYMPH % 25 % (24-48); MEAN CORPUSCULAR HEMOGLOBIN 29 pg (25-35); MEAN CORPUSCULAR HGB CONC 33 g/dL (31-37); MEAN CORPUSCULAR VOLUME 88 fL (79-100); MONO % 10 % (0-9); NEUT % 63 % (31-73); PLATELET COUNT 328 x10^3/uL (140-400); RED BLOOD COUNT 4.69 x10^6/uL (4.30-5.70); WHITE BLOOD COUNT 9.1 x10^3/uL (4.0-11.0)
[2016-06-15] MEDS: PIPERACILLIN/TAZOBACTAM 3.375 GM in IV NORMAL SALINE 50ML 50 ML IV SCH ×4 (05:43→23:52)
[2016-06-15 05:44] LABS: CALCIUM 9.6 mg/dL (8.5-10.1); CREATININE 0.9 mg/dL (0.7-1.3); GFR 88.3; POTASSIUM 4.6 mmol/L (3.5-5.1)
[2016-06-15] MEDS: VANCOMYCIN PER PHARMACY MC PRN ×4 (06:09→13:29)
[2016-06-15 07:00] VITALS: BP 124/81
[2016-06-15] MEDS: VANCOMYCIN 1.5 GM in IV NORMAL SALINE 500ML BAG 500 ML IV SCH ×2 (07:28→15:40)
[2016-06-15] MEDS: INSULIN ASPART 300 UNITS/3 ML INSULN.PEN SQ SCH ×3 (08:00→17:41)
[2016-06-15] MEDS: PREGABALIN 50 MG CAPSULE PO SCH ×2 (09:22→21:12)
[2016-06-15] MEDS: PANTOPRAZOLE 40 MG TABLET. PO SCH (09:23)
[2016-06-15] MEDS: AMLODIPINE BESYLATE 5 MG TABLET PO SCH (09:23)
[2016-06-15] MEDS: LISINOPRIL 40 MG TABLET. PO SCH (09:24)
[2016-06-15 11:00] VITALS: BP 135/89
--- NOTE | 2016-06-15 12:00 | PDOC ---
Infectious Disease Note Subjective Subjective Comfortable, denies pain Dressings recently changed Less cough ROS ROS GEN: Denies fevers, chills, sweats HEENT: Denies sore throat CV: Denies chest pain RESP: Denies shortness of air GI: Denies n/v/d Vital Sign Vital Signs Vital Signs Date Time Temp Pulse Resp B/P Pulse Ox O2 Delivery O2 Flow Rate FiO2 06/15/16 11:00 97.5 86 20 135/89 97 Room Air 97.5 Physical Exam PHYSICAL EXAM GENERAL: Propped up in bed, relaxed appearance HENT: Op/OC clear NECK: Supple. LUNGS: Clear to auscultation. CARDIOVASCULAR: Normal S1 and S2. ABDOMEN: Nondistended, bowel sounds present, soft and nontender. EXTREMITIES: No gross edema or cyanosis. Dressings on both feet are dry and intact. Recently changed. SKIN: Without rash. Warm to touch. NEUROLOGIC: Alert and oriented x 3. Moves all extremities. Peripheral IV: ok Labs Lab Laboratory Tests Test 06/14/16 16:18 06/14/16 21:38 06/15/16 05:10 06/15/16 07:37 Glucose (Fingerstick) 237mg/dL (70-99) 225mg/dL (70-99) 146mg/dL (70-99) White Blood Count 9.1x10^3/uL (4.0-11.0) Red Blood Count 4.69x10^6/uL (4.30-5.70) Hemoglobin 13.7g/dL (13.0-17.5) Hematocrit 41.4% (39.0-53.0) Mean Corpuscular Volume 88fL (79-100) Mean Corpuscular Hemoglobin 29pg (25-35) Mean Corpuscular Hemoglobin Concent 33g/dL (31-37) Red Cell Distribution Width 14.0% (11.5-14.5) Platelet Count 328x10^3/uL (140-400) Neutrophils (%) (Auto) 63% (31-73) Lymphocytes (%) (Auto) 25% (24-48) Monocytes (%) (Auto) 10% (0-9) Eosinophils (%) (Auto) 2% (0-3) Basophils (%) (Auto) 1% (0-3) Neutrophils # (Auto) 5.7x10^3uL (1.8-7.7) Lymphocytes # (Auto) 2.3x10^3/uL (1.0-4.8) Monocytes # (Auto) 0.9x10^3/uL (0.0-1.1) Eosinophils # (Auto) 0.2x10^3/uL (0.0-0.7) Basophils # (Auto) 0.1x10^3/uL (0.0-0.2) Sodium Level 138mmol/L (136-145) Potassium Level 4.6mmol/L (3.5-5.1) Chloride Level 102mmol/L (98-107) Carbon Dioxide Level 27mmol/L (21-32) Anion Gap 9 (6-14) Blood Urea Nitrogen 20mg/dL (8-26) Creatinine 0.9mg/dL (0.7-1.3) Estimated GFR (Cockcroft-Gault) 88.3 Glucose Level 174mg/dL (70-99) Calcium Level 9.6mg/dL (8.5-10.1) Vancomycin Level Trough 15.3mcg/mL (10.0-20.0) Vancomycin Last Dose Date 06/14/16 Vancomycin Last Dose Time 1619 Test 06/15/16 10:49 Glucose (Fingerstick) 183mg/dL (70-99) Micro AEROBIC RES 1 Final Methicillin - resistant Staphylococcus aureus Antibiotic RSLT#1 Ciprofloxacin S<=0.5 Clindamycin S<=0.25 Erythromycin R>=8 Gentamicin R>=16 Levofloxacin S =0.25 Linezolid S =2 Oxacillin R>=4 Penicillin R>=0.5 Rifampin S<=0.5 Tetracycline S<=1 Trimethoprim/Sulfa S<=10 Vancomycin S =1 Objective Assessment Cellulitis and abscess of diabetic wound of right foot. s/p I and D. MRSA Infected diabetic wound with bone exposure of 2nd digit of left foot. Chronic nonhealing diabetic wounds, bilateral feet Diabetes with neuropathy URI Plan Plan of Care Continue vancomycin and Zosyn Pt scheduled for partial amputation of 2nd toe of left foot on Thursday. Monitor WBC, Cr and temp f/u cultures Supportive care Patient seen and examined. Chart reviewed. Case discussed with DRY DRUG WORKER. Agree with above plan ELIZABETH LAYTON APRN Jun 15, 2016 12:00 JAMEL JOSEPH MD Jun 15, 2016 17:33
[2016-06-15 15:00] VITALS: BP 110/69
--- NOTE | 2016-06-15 15:02 | PDOC ---
PROGRESS NOTES Chief Complaint Chief Complaint Diabetic foot ulcers ASSESSMENT AND PLAN: 1. Bilateral diabetic foot wounds, (R metacarpophalangeal joint, plantar surface, and L second digit.) s/p debridement in office by Dr Dave on 06/12. to bone. no bony abn noted on Xrays, but nonhealing, with hx MRSA, and nonresponse to PO Abx at home, concern for osteo. on Zosyn/Vanco, appreciate ID service input 2. Osteo in L 2nd toe: planned amputation on Thursday 3. DM2: good control with tradjenta as well as levemir plus ISS. hold janumet (metformin) for now. 4. diabetic neuropathy: on lyrica 5. HTN: well controlled on multi-drug home regimen. continue 6. HLD: on statin 7. Prophylaxis: lovenox Vitals Vitals Vital Signs Date Time Temp Pulse Resp B/P Pulse Ox O2 Delivery O2 Flow Rate FiO2 06/15/16 11:00 97.5 86 20 135/89 97 Room Air 97.5 Physical Exam General: Alert, Oriented X3, Cooperative Heart: Regular rate Lungs: Clear Abdomen: Normal bowel sounds, No tenderness, No masses Extremities: Other (B distal feet in gauze, dressed bt Dr Dave) Labs LABS Laboratory Tests Test 06/14/16 16:18 06/14/16 21:38 06/15/16 05:10 06/15/16 07:37 Glucose (Fingerstick) 237mg/dL (70-99) 225mg/dL (70-99) 146mg/dL (70-99) White Blood Count 9.1x10^3/uL (4.0-11.0) Red Blood Count 4.69x10^6/uL (4.30-5.70) Hemoglobin 13.7g/dL (13.0-17.5) Hematocrit 41.4% (39.0-53.0) Mean Corpuscular Volume 88fL (79-100) Mean Corpuscular Hemoglobin 29pg (25-35) Mean Corpuscular Hemoglobin Concent 33g/dL (31-37) Red Cell Distribution Width 14.0% (11.5-14.5) Platelet Count 328x10^3/uL (140-400) Neutrophils (%) (Auto) 63% (31-73) Lymphocytes (%) (Auto) 25% (24-48) Monocytes (%) (Auto) 10% (0-9) Eosinophils (%) (Auto) 2% (0-3) Basophils (%) (Auto) 1% (0-3) Neutrophils # (Auto) 5.7x10^3uL (1.8-7.7) Lymphocytes # (Auto) 2.3x10^3/uL (1.0-4.8) Monocytes # (Auto) 0.9x10^3/uL (0.0-1.1) Eosinophils # (Auto) 0.2x10^3/uL (0.0-0.7) Basophils # (Auto) 0.1x10^3/uL (0.0-0.2) Sodium Level 138mmol/L (136-145) Potassium Level 4.6mmol/L (3.5-5.1) Chloride Level 102mmol/L (98-107) Carbon Dioxide Level 27mmol/L (21-32) Anion Gap 9 (6-14) Blood Urea Nitrogen 20mg/dL (8-26) Creatinine 0.9mg/dL (0.7-1.3) Estimated GFR (Cockcroft-Gault) 88.3 Glucose Level 174mg/dL (70-99) Calcium Level 9.6mg/dL (8.5-10.1) Vancomycin Level Trough 15.3mcg/mL (10.0-20.0) Vancomycin Last Dose Date 06/14/16 Vancomycin Last Dose Time 1619 Test 06/15/16 10:49 Glucose (Fingerstick) 183mg/dL (70-99) Review of Systems Review of Systems no acute issues. ISABELA CARIAS MD Jun 15, 2016 15:02
[2016-06-15 19:00] VITALS: BP 96/64
[2016-06-15] MEDS: TEMAZEPAM 15 MG CAPSULE PO PRN (21:11)
[2016-06-15] MEDS: ATORVASTATIN CALCIUM 20 MG TABLET PO SCH (21:11)
[2016-06-15] MEDS: INSULIN DETEMIR 300 UNITS/3 ML INSULN.PEN. SQ SCH (21:15)
[2016-06-15 23:00] VITALS: BP 111/59
--- NOTE | 2016-06-16 00:42 | PN ---
DATE: 06/15/2016 DIAGNOSES: 1. Deep abscess with methicillin-resistant Staphylococcus aureus, right forefoot. 2. Osteomyelitis with diabetic foot ulceration, left forefoot. SUBJECTIVE: I visited the patient at bedside today while his mother was visiting. He denies any fevers, night sweats, chills, nausea or vomiting. He has a good appetite and he is in good spirits today. He states that he has had minimal pain in the right foot and he has tried to avoid putting pressure on to the right forefoot region. PHYSICAL EXAMINATION: EXTREMITIES: The patient's dressings are dry, clean and intact. The right foot wound after removal of his drain exhibits a scant amount of purulent drainage in a moderate amount of reed colored serous exudate. There is diminished erythema and edema compared to my visit 2 days ago. There is no odor appreciated. The wound continues ____ deep well into the subcutaneous tissues with a white necrotic tissue noted about the wound base, some of which was removed today with a sterile scissors at bedside. The left foot continues to exhibit a dry wound, it about the distal aspect of the second digit with exposed bone. There is diminished erythema and edema noted in the second digit of the left foot consistent with resolving cellulitis. The plantar wound noted about the plantar first metatarsal head region. Continues to extend through the full thickness of skin with no surrounding erythema, calor or induration. The patient's lab results were significant for MRSA growth. RECOMMENDATIONS: Discussed the patient's treatment options. I debrided a bit more of the wound today using sterile scissors. I then irrigated with pressurized saline, inserted AQUACEL Ag drain into the right foot wound and covered with a gauze compression dressing, also applied AQUACEL Ag to the open wounds on the left foot with a gauze compression dressing. We will defer to Infectious Disease for his IV antibiotics. Again, discussed with the patient. My recommended surgeries which is scheduled for Thursday morning of a partial amputation of the second digit of the left foot and irrigation and debridement of the right foot wound. He is to continue to limit his weightbearing as much as possible and I will follow tomorrow. YESICA PAINTER DPM DR: TERESA/gabriel JOB#: [id number] / [id number]
[2016-06-16 03:20] VITALS: BP 108/65
[2016-06-16] MEDS: VANCOMYCIN 1.5 GM in IV NORMAL SALINE 500ML BAG 500 ML IV SCH ×2 (03:35→15:08)
[2016-06-16 04:04] LABS: BASO # 0.1 x10^3/uL (0.0-0.2); BASO % 1 % (0-3); EOS % 3 % (0-3); HEMATOCRIT 41.8 % (39.0-53.0); HEMOGLOBIN 13.5 g/dL (13.0-17.5); LYMPH # 2.5 x10^3/uL (1.0-4.8); LYMPH % 33 % (24-48); MEAN CORPUSCULAR HEMOGLOBIN 29 pg (25-35); MEAN CORPUSCULAR HGB CONC 32 g/dL (31-37); MEAN CORPUSCULAR VOLUME 89 fL (79-100); MONO % 11 % (0-9); NEUT % 53 % (31-73); PLATELET COUNT 303 x10^3/uL (140-400); RED BLOOD COUNT 4.71 x10^6/uL (4.30-5.70); WHITE BLOOD COUNT 7.6 x10^3/uL (4.0-11.0)
[2016-06-16 04:22] LABS: CALCIUM 9.7 mg/dL (8.5-10.1); CREATININE 0.9 mg/dL (0.7-1.3); GFR 88.3; POTASSIUM 4.2 mmol/L (3.5-5.1)
[2016-06-16] MEDS: PANTOPRAZOLE 40 MG TABLET. PO SCH (06:10)
[2016-06-16] MEDS: PIPERACILLIN/TAZOBACTAM 3.375 GM in IV NORMAL SALINE 50ML 50 ML IV SCH ×3 (06:10→17:32)
[2016-06-16 07:00] VITALS: BP 116/60
[2016-06-16] MEDS: INSULIN ASPART 300 UNITS/3 ML INSULN.PEN SQ SCH ×3 (08:00→16:28)
[2016-06-16] MEDS: AMLODIPINE BESYLATE 5 MG TABLET PO SCH (08:48)
[2016-06-16] MEDS: LISINOPRIL 40 MG TABLET. PO SCH (08:49)
[2016-06-16] MEDS: PREGABALIN 50 MG CAPSULE PO SCH ×2 (08:50→21:08)
--- NOTE | 2016-06-16 09:25 | PDOC ---
Infectious Disease Note Subjective Subjective Comfortable, denies pain Dressings recently changed Less cough ROS ROS GEN: Denies fevers, chills, sweats HEENT: Denies blurred vision, sore throat CV: Denies chest pain RESP: Denies shortness of air, cough GI: Denies n/v/d NEURO: Denies confusion, dizziness MSK: Denies weakness, joint pain/swelling Vital Sign Vital Signs Vital Signs Date Time Temp Pulse Resp B/P Pulse Ox O2 Delivery O2 Flow Rate FiO2 06/16/16 08:49 77 116/60 06/16/16 07:00 97.4 20 94 Room Air 97.4 Physical Exam PHYSICAL EXAM GENERAL: NAD, Alert. in chair HEENT: PERRL, OC/OP -clear NECK: Supple, no JVD, no LN LUNGS: Clear HEART: S1S2, no gallop, no murmur ABD: Soft, NT, no organomegaly, no rebound EXT: No edema, no cyanosis. Feet dressed TOOL HONING MACHINE SET UP OPERATOR: Alert, oriented x 3, no focal neurologic deficit SKIN: No rash IV: ok Labs Lab Laboratory Tests Test 06/15/16 10:49 06/15/16 16:28 06/15/16 20:29 06/16/16 03:20 Glucose (Fingerstick) 183mg/dL (70-99) 184mg/dL (70-99) 248mg/dL (70-99) White Blood Count 7.6x10^3/uL (4.0-11.0) Red Blood Count 4.71x10^6/uL (4.30-5.70) Hemoglobin 13.5g/dL (13.0-17.5) Hematocrit 41.8% (39.0-53.0) Mean Corpuscular Volume 89fL (79-100) Mean Corpuscular Hemoglobin 29pg (25-35) Mean Corpuscular Hemoglobin Concent 32g/dL (31-37) Red Cell Distribution Width 14.0% (11.5-14.5) Platelet Count 303x10^3/uL (140-400) Neutrophils (%) (Auto) 53% (31-73) Lymphocytes (%) (Auto) 33% (24-48) Monocytes (%) (Auto) 11% (0-9) Eosinophils (%) (Auto) 3% (0-3) Basophils (%) (Auto) 1% (0-3) Neutrophils # (Auto) 4.0x10^3uL (1.8-7.7) Lymphocytes # (Auto) 2.5x10^3/uL (1.0-4.8) Monocytes # (Auto) 0.8x10^3/uL (0.0-1.1) Eosinophils # (Auto) 0.2x10^3/uL (0.0-0.7) Basophils # (Auto) 0.1x10^3/uL (0.0-0.2) Sodium Level 141mmol/L (136-145) Potassium Level 4.2mmol/L (3.5-5.1) Chloride Level 103mmol/L (98-107) Carbon Dioxide Level 28mmol/L (21-32) Anion Gap 10 (6-14) Blood Urea Nitrogen 15mg/dL (8-26) Creatinine 0.9mg/dL (0.7-1.3) Estimated GFR (Cockcroft-Gault) 88.3 Glucose Level 186mg/dL (70-99) Calcium Level 9.7mg/dL (8.5-10.1) Test 06/16/16 07:02 Glucose (Fingerstick) 137mg/dL (70-99) Objective Assessment Cellulitis and abscess of diabetic wound of right foot. s/p I and D. MRSA Infected diabetic wound with bone exposure of 2nd digit of left foot. Chronic nonhealing diabetic wounds, bilateral feet Diabetes with neuropathy URI Plan Plan of Care Continue vancomycin and Zosyn Add fluconazole Pt scheduled for partial amputation of 2nd toe of left foot on Thursday. Monitor WBC, Cr and temp f/u cultures Supportive care SARA BAL MD Jun 16, 2016 09:25
[2016-06-16] MEDS: FLUCONAZOLE 100 MG TABLET. PO SCH (10:35)
[2016-06-16 11:00] VITALS: BP 145/80
--- NOTE | 2016-06-16 11:01 | PDOC ---
PROGRESS NOTES Chief Complaint Chief Complaint Diabetic foot ulcers ASSESSMENT AND PLAN: 1. Bilateral diabetic foot wounds, (R metacarpophalangeal joint, plantar surface, and L second digit.) s/p debridement in office by Dr Dave on 06/12. to bone. no bony abn noted on Xrays, but nonhealing, with hx MRSA, and nonresponse to PO Abx at home, concern for osteo. on Zosyn/Vanco, appreciate ID service input 2. Osteo in L 2nd toe: planned amputation on Thursday 3. DM2: good control with tradjenta as well as levemir plus ISS. hold janumet (metformin) for now. 4. diabetic neuropathy: on lyrica 5. HTN: well controlled on multi-drug home regimen. continue 6. HLD: on statin 7. Prophylaxis: lovenox Vitals Vitals Vital Signs Date Time Temp Pulse Resp B/P Pulse Ox O2 Delivery O2 Flow Rate FiO2 06/16/16 08:49 77 116/60 06/16/16 08:05 Room Air 06/16/16 07:00 97.4 20 94 97.4 Physical Exam General: Alert, Oriented X3, Cooperative Heart: Regular rate, Normal S1, Normal S2 Lungs: Clear Abdomen: Normal bowel sounds, No tenderness, No masses Extremities: Other Labs LABS Laboratory Tests Test 06/15/16 16:28 06/15/16 20:29 06/16/16 03:20 06/16/16 07:02 Glucose (Fingerstick) 184mg/dL (70-99) 248mg/dL (70-99) 137mg/dL (70-99) White Blood Count 7.6x10^3/uL (4.0-11.0) Red Blood Count 4.71x10^6/uL (4.30-5.70) Hemoglobin 13.5g/dL (13.0-17.5) Hematocrit 41.8% (39.0-53.0) Mean Corpuscular Volume 89fL (79-100) Mean Corpuscular Hemoglobin 29pg (25-35) Mean Corpuscular Hemoglobin Concent 32g/dL (31-37) Red Cell Distribution Width 14.0% (11.5-14.5) Platelet Count 303x10^3/uL (140-400) Neutrophils (%) (Auto) 53% (31-73) Lymphocytes (%) (Auto) 33% (24-48) Monocytes (%) (Auto) 11% (0-9) Eosinophils (%) (Auto) 3% (0-3) Basophils (%) (Auto) 1% (0-3) Neutrophils # (Auto) 4.0x10^3uL (1.8-7.7) Lymphocytes # (Auto) 2.5x10^3/uL (1.0-4.8) Monocytes # (Auto) 0.8x10^3/uL (0.0-1.1) Eosinophils # (Auto) 0.2x10^3/uL (0.0-0.7) Basophils # (Auto) 0.1x10^3/uL (0.0-0.2) Sodium Level 141mmol/L (136-145) Potassium Level 4.2mmol/L (3.5-5.1) Chloride Level 103mmol/L (98-107) Carbon Dioxide Level 28mmol/L (21-32) Anion Gap 10 (6-14) Blood Urea Nitrogen 15mg/dL (8-26) Creatinine 0.9mg/dL (0.7-1.3) Estimated GFR (Cockcroft-Gault) 88.3 Glucose Level 186mg/dL (70-99) Calcium Level 9.7mg/dL (8.5-10.1) Comment Review of Relevant I have reviewed the following items eva (where applicable) has been applied. Labs Laboratory Tests Test 06/14/16 16:18 06/14/16 21:38 06/15/16 05:10 06/15/16 07:37 Glucose (Fingerstick) 237mg/dL (70-99) 225mg/dL (70-99) 146mg/dL (70-99) White Blood Count 9.1x10^3/uL (4.0-11.0) Red Blood Count 4.69x10^6/uL (4.30-5.70) Hemoglobin 13.7g/dL (13.0-17.5) Hematocrit 41.4% (39.0-53.0) Mean Corpuscular Volume 88fL (79-100) Mean Corpuscular Hemoglobin 29pg (25-35) Mean Corpuscular Hemoglobin Concent 33g/dL (31-37) Red Cell Distribution Width 14.0% (11.5-14.5) Platelet Count 328x10^3/uL (140-400) Neutrophils (%) (Auto) 63% (31-73) Lymphocytes (%) (Auto) 25% (24-48) Monocytes (%) (Auto) 10% (0-9) Eosinophils (%) (Auto) 2% (0-3) Basophils (%) (Auto) 1% (0-3) Neutrophils # (Auto) 5.7x10^3uL (1.8-7.7) Lymphocytes # (Auto) 2.3x10^3/uL (1.0-4.8) Monocytes # (Auto) 0.9x10^3/uL (0.0-1.1) Eosinophils # (Auto) 0.2x10^3/uL (0.0-0.7) Basophils # (Auto) 0.1x10^3/uL (0.0-0.2) Sodium Level 138mmol/L (136-145) Potassium Level 4.6mmol/L (3.5-5.1) Chloride Level 102mmol/L (98-107) Carbon Dioxide Level 27mmol/L (21-32) Anion Gap 9 (6-14) Blood Urea Nitrogen 20mg/dL (8-26) Creatinine 0.9mg/dL (0.7-1.3) Estimated GFR (Cockcroft-Gault) 88.3 Glucose Level 174mg/dL (70-99) Calcium Level 9.6mg/dL (8.5-10.1) Vancomycin Level Trough 15.3mcg/mL (10.0-20.0) Vancomycin Last Dose Date 06/14/16 Vancomycin Last Dose Time 1619 Test 06/15/16 10:49 06/15/16 16:28 06/15/16 20:29 06/16/16 03:20 Glucose (Fingerstick) 183mg/dL (70-99) 184mg/dL (70-99) 248mg/dL (70-99) White Blood Count 7.6x10^3/uL (4.0-11.0) Red Blood Count 4.71x10^6/uL (4.30-5.70) Hemoglobin 13.5g/dL (13.0-17.5) Hematocrit 41.8% (39.0-53.0) Mean Corpuscular Volume 89fL (79-100) Mean Corpuscular Hemoglobin 29pg (25-35) Mean Corpuscular Hemoglobin Concent 32g/dL (31-37) Red Cell Distribution Width 14.0% (11.5-14.5) Platelet Count 303x10^3/uL (140-400) Neutrophils (%) (Auto) 53% (31-73) Lymphocytes (%) (Auto) 33% (24-48) Monocytes (%) (Auto) 11% (0-9) Eosinophils (%) (Auto) 3% (0-3) Basophils (%) (Auto) 1% (0-3) Neutrophils # (Auto) 4.0x10^3uL (1.8-7.7) Lymphocytes # (Auto) 2.5x10^3/uL (1.0-4.8) Monocytes # (Auto) 0.8x10^3/uL (0.0-1.1) Eosinophils # (Auto) 0.2x10^3/uL (0.0-0.7) Basophils # (Auto) 0.1x10^3/uL (0.0-0.2) Sodium Level 141mmol/L (136-145) Potassium Level 4.2mmol/L (3.5-5.1) Chloride Level 103mmol/L (98-107) Carbon Dioxide Level 28mmol/L (21-32) Anion Gap 10 (6-14) Blood Urea Nitrogen 15mg/dL (8-26) Creatinine 0.9mg/dL (0.7-1.3) Estimated GFR (Cockcroft-Gault) 88.3 Glucose Level 186mg/dL (70-99) Calcium Level 9.7mg/dL (8.5-10.1) Test 06/16/16 07:02 Glucose (Fingerstick) 137mg/dL (70-99) Laboratory Tests Test 06/15/16 16:28 06/15/16 20:29 06/16/16 03:20 06/16/16 07:02 Glucose (Fingerstick) 184mg/dL (70-99) 248mg/dL (70-99) 137mg/dL (70-99) White Blood Count 7.6x10^3/uL (4.0-11.0) Red Blood Count 4.71x10^6/uL (4.30-5.70) Hemoglobin 13.5g/dL (13.0-17.5) Hematocrit 41.8% (39.0-53.0) Mean Corpuscular Volume 89fL (79-100) Mean Corpuscular Hemoglobin 29pg (25-35) Mean Corpuscular Hemoglobin Concent 32g/dL (31-37) Red Cell Distribution Width 14.0% (11.5-14.5) Platelet Count 303x10^3/uL (140-400) Neutrophils (%) (Auto) 53% (31-73) Lymphocytes (%) (Auto) 33% (24-48) Monocytes (%) (Auto) 11% (0-9) Eosinophils (%) (Auto) 3% (0-3) Basophils (%) (Auto) 1% (0-3) Neutrophils # (Auto) 4.0x10^3uL (1.8-7.7) Lymphocytes # (Auto) 2.5x10^3/uL (1.0-4.8) Monocytes # (Auto) 0.8x10^3/uL (0.0-1.1) Eosinophils # (Auto) 0.2x10^3/uL (0.0-0.7) Basophils # (Auto) 0.1x10^3/uL (0.0-0.2) Sodium Level 141mmol/L (136-145) Potassium Level 4.2mmol/L (3.5-5.1) Chloride Level 103mmol/L (98-107) Carbon Dioxide Level 28mmol/L (21-32) Anion Gap 10 (6-14) Blood Urea Nitrogen 15mg/dL (8-26) Creatinine 0.9mg/dL (0.7-1.3) Estimated GFR (Cockcroft-Gault) 88.3 Glucose Level 186mg/dL (70-99) Calcium Level 9.7mg/dL (8.5-10.1) Microbiology 06/13/16 Gram Stain - Final, Complete Medications Current Medications Acetaminophen (Tylenol) 325 mg PRN Q6HRS PRN PO MILD PAIN / TEMP; Start at 13:00 Acetaminophen/ Hydrocodone Bitart (Lortab 5/325) 1 tab PRN Q6HRS PRN PO MODERATE TO SEVERE PAIN Last administered on 06/13/16 16:02; Start 06/13/16 at 13:00 Hydralazine HCl (Apresoline) 10 mg PRN Q4HRS PRN IVP ELEVATED BP, SEE COMMENTS ; Start 06/13/16 at 13:00 Ondansetron HCl (Zofran) 4 mg PRN Q8HRS PRN IV NAUSEA/VOMITING; Start 06/13/16 at 13:00 Albuterol Sulfate (Ventolin Neb Soln) 2.5 mg PRN Q4HRS PRN NEB SHORTNESS OF BREATH Last administered on 06/13/16 17:24; Start 06/13/16 at 13:00 Insulin Aspart (Novolog) 0-9 UNITS TIDWMEALS SQ Last administered on 06/15/16 17:41; Start 06/13/16 at 17:00 Dextrose 12.5 gm 12.5 gm PRN Q15MIN PRN IV SEE COMMENTS; Start 06/13/16 at 13: 00 Piperacillin Sod/ Tazobactam Sod/ Sodium Chloride (Zosyn/Iv Sodium Chloride 0.9 % 50ml) 50 ml @ 100 mls/hr Q6HRS IV Last administered on 06/16/16 06:10; Start 06/13/16 at 20:00 Vancomycin HCl (Vanco Per Pharmacy) 1 each PRN DAILY PRN MC SEE COMMENTS Last administered on 06/15/16 13:29; Start 06/13/16 at 13:00 Vancomycin HCl 1 each 1 each PRN DAILY PRN MC SEE COMMENTS; Start 06/13/16 at 13:00; Status UNV Piperacillin Sod/ Tazobactam Sod 3.375 gm/Sodium Chloride 50 ml @ 100 mls/hr 1X ONCE IV Last administered on 06/13/16 14:42; Start 06/13/16 at 13:15; Stop 06/13/16 at 13:44; Status DC Vancomycin HCl/ Sodium Chloride (Iv Sodium Chloride 0.9% 500ml Bag) 500 ml @ 250 mls/hr ONCE ONCE IV Last administered on 06/13/16 15:56; Start 06/13/16 at 13:30; Stop 06/13/16 at 15:29; Status DC Amlodipine Besylate (Norvasc) 5 mg DAILY PO Last administered on 06/16/16 08: 48; Start 06/13/16 at 17:00 Atorvastatin Calcium (Lipitor) 20 mg QHS PO Last administered on 06/15/16 21: 11; Start 06/13/16 at 21:00 Lisinopril (Prinivil) 40 mg DAILY PO Last administered on 06/16/16 08:49; Start 06/13/16 at 17:00 Pantoprazole Sodium (Protonix) 40 mg DAILYAC PO Last administered on 06/16/16 06:10; Start 06/13/16 at 17:00 Pregabalin 200 mg 200 mg BID PO Last administered on 06/16/16 08:50; Start at 21:00 Vancomycin HCl/ Sodium Chloride (Iv Sodium Chloride 0.9% 500ml Bag) 500 ml @ 250 mls/hr Q12H IV Last administered on 06/16/16 03:35; Start 06/14/16 at 04: 00 Vancomycin HCl 1 each 1X ONCE MC ; Start 06/15/16 at 03:30; Stop 06/15/16 at 03 :31; Status DC Temazepam (Restoril) 15 mg PRN QHS PRN PO INSOMNIA Last administered on 21:11; Start 06/13/16 at 22:00 Insulin Detemir (Levemir) 25 units QHS SQ Last administered on 06/15/16 21:15 ; Start 06/14/16 at 21:00 Fluconazole (Diflucan) 200 mg DAILY PO Last administered on 06/16/16 10:35; Start 06/16/16 at 09:30 Active Scripts Active Amlodipine Besylate 5 Mg Tablet 5 Mg PO DAILY Reported Soliqua 100 Unit-33 Mcg/ml Pen (Insulin Glargine/Lixisenatide) 3 Ml Insuln.pen 3 Ml SQ Vitamin D3 (Cholecalciferol (Vitamin D3)) 1,000 Unit Tablet 2 Tab PO DAILY Vitamin B-12 (Cyanocobalamin (Vitamin B-12)) 1,000 Mcg Tablet 1 Tab PO DAILY Omeprazole 20 Mg Capsule.dr 1 Cap PO DAILY Aspir 81 (Aspirin) 81 Mg Tablet.dr 81 Mg PO DAILY Levemir (Insulin Detemir) 100 Unit/1 Ml Vial 25 Unit SQ HS Atorvastatin Calcium 20 Mg Tablet Janumet 50-1,000 Mg Tablet (Sitagliptin Phos/Metformin Hcl) 1 Each Tablet Lisinopril 40 Mg Tablet Farxiga (Dapagliflozin Propanediol) 10 Mg Tablet Lyrica (Pregabalin) 200 Mg Capsule Celebrex (Celecoxib) 200 Mg Capsule 1 Cap PO DAILY Vitals/I & O Vital Sign - Last 24 Hours 06/15/16 06/15/16 06/15/16 06/15/16 15:00 19:00 20:05 23:00 Temp 98.0 97.8 98.2 98.0 97.8 98.2 Pulse 97 83 76 Resp 20 20 18 B/P 110/69 96/64 111/59 Pulse Ox 94 95 95 O2 Delivery Room Air Room Air Room Air Room Air 06/16/16 06/16/16 06/16/16 06/16/16 03:20 07:00 08:05 08:48 Temp 98.6 97.4 98.6 97.4 Pulse 82 77 77 Resp 20 20 B/P 108/65 116/60 116/60 Pulse Ox 93 94 O2 Delivery Room Air Room Air Room Air 06/16/16 08:49 Pulse 77 B/P 116/60 Intake and Output 06/15/16 06/15/16 06/16/16 15:00 23:00 07:00 Intake Total 680 ml 550 ml Balance 680 ml 550 ml DAVID TSE MD Jun 16, 2016 11:01
[2016-06-16] MEDS: VANCOMYCIN PER PHARMACY MC PRN (13:27)
--- NOTE | 2016-06-16 14:16 | PREOP HP ---
DATE OF SERVICE: 06/16/2016 PREOPERATIVE DIAGNOSES: 1. Osteomyelitis with diabetic foot ulceration, distal aspect of second digit, left foot. 2. Deep abscess with diabetic foot ulceration, right forefoot with resolving cellulitis. 3. 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 HISTORY OF PRESENT ILLNESS: The patient has been inpatient since Thursday06/13/2016, after presentation to my office with an open ulceration of the second digit of the left foot and a new wound on the right foot with a deep abscess and cellulitis. He was subsequently admitted to [facility] for IV antibiotics. I performed a bedside I and D on him on Thursday and have noticed his condition is bettering since that time. The patient denies any fevers, night sweats, chills, nausea or vomiting. He has a good appetite. He is relatively pain free regarding the left foot and has noticed diminished pain with regard to the right foot. He understands the procedures that are proposed to be performed tomorrow morning and has had an opportunity to ask any questions he may have. PHYSICAL EXAMINATION: VASCULATURE: Palpable dorsalis pedis, palpable posterior tibial pulse, no gross varicosities or edema. INTEGUMENT: There is an open wound noted in the distal aspect of the second digit of the left foot with dry fibrin and exposed bone noted with complete loss of the subcutaneous tissues. There is minimal amount of localized erythema noted today with no calor, no fluctuance, no signs of ascending cellulitis or lymphangitis. In addition, the left forefoot continues to exhibit in a full thickness ulceration, plantar to the left first metatarsal head with granulation tissue noted overlying the wound base. No exposure of deep structures. No undermining. Regarding the right foot, there is plantar ulceration noted underlying the right first metatarsal head extending well into the subcutaneous tissues with palpation of the arch of the foot today in the periwound region. There is no exudate appreciated. There is diminished pain noted with deep palpation as well. There continues to be localized erythema. No calor, no induration, no fluctuance surrounding the first metatarsophalangeal joint region. No pain with range of motion of the first metatarsophalangeal joint. No palpable or visible capsule periosteal tissues or bone regarding the right foot. NEUROLOGIC: Sensorium is markedly diminished to sharp and light touch. The patient has lost his protective sense bilateral foot. MUSCULOSKELETAL: Evidence of exposed bone, second digit left foot with flexion contracture at the distal interphalangeal joint consistent with a mallet toe deformity. RECOMMENDATIONS: Discussed patient's treatment options. While nursing staff is with me today, I irrigated the right foot wound using moderate amount of pressurized saline. I then inserted Aquacel AG drain into the patient's right foot wound site and applied Aquacel AG to the left foot wounds covered with gauze compression dressings. I agree with continued usage of his IV antibiotics per his infectious disease doctors. I again today recommended that he consider a partial amputation of the second digit of the left foot and an incision and debridement of the right foot abscess to be performed tomorrow morning at 7:30 at [facility] using local with IV sedation. I addressed the patient's questions and concerns, also reminded him of the potential for risks and complications including, but not limited to the potential for residual infection, delayed healing, pain, numbness, scar tissue formation, recurrence of the deformity and the need for future surgical intervention including ____ loss of the digit and/or limb as worst case scenario. YESICA PAINTER DPM DR: TERESA/gabriel JOB#: [id number] / [id number]
[2016-06-16 15:00] VITALS: BP 106/61
[2016-06-16] MEDS: ALBUTEROL SULFATE 2.5 MG/3 ML NEBU. NEB PRN (15:05)
--- NOTE | 2016-06-16 17:51 | EKG ---
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
[2016-06-16 19:00] VITALS: BP 105/64
[2016-06-16] MEDS: ATORVASTATIN CALCIUM 20 MG TABLET PO SCH (21:08)
[2016-06-16] MEDS: TEMAZEPAM 15 MG CAPSULE PO PRN (21:08)
[2016-06-16] MEDS: INSULIN DETEMIR 300 UNITS/3 ML INSULN.PEN. SQ SCH (21:15)
[2016-06-16 22:49] VITALS: BP 107/72
[2016-06-17] VITALS (9 sets, daily range): BP systolic 115–141; BP diastolic 65–84
[2016-06-17] MEDS: PIPERACILLIN/TAZOBACTAM 3.375 GM in IV NORMAL SALINE 50ML 50 ML IV SCH ×5 (00:43→23:08)
[2016-06-17] MEDS: VANCOMYCIN 1.5 GM in IV NORMAL SALINE 500ML BAG 500 ML IV SCH ×2 (03:51→14:44)
[2016-06-17 05:13] LABS: BASO # 0.1 x10^3/uL (0.0-0.2); BASO % 1 % (0-3); EOS % 2 % (0-3); HEMATOCRIT 39.6 % (39.0-53.0); HEMOGLOBIN 12.7 g/dL (13.0-17.5); LYMPH # 2.4 x10^3/uL (1.0-4.8); LYMPH % 34 % (24-48); MEAN CORPUSCULAR HEMOGLOBIN 28 pg (25-35); MEAN CORPUSCULAR HGB CONC 32 g/dL (31-37); MEAN CORPUSCULAR VOLUME 88 fL (79-100); MONO % 10 % (0-9); NEUT % 53 % (31-73); PLATELET COUNT 307 x10^3/uL (140-400); RED BLOOD COUNT 4.49 x10^6/uL (4.30-5.70); RED CELL DISTRIBUTION WIDTH 13.8 % (11.5-14.5); WHITE BLOOD COUNT 7.1 x10^3/uL (4.0-11.0)
[2016-06-17 05:39] LABS: CALCIUM 9.5 mg/dL (8.5-10.1); CREATININE 0.8 mg/dL (0.7-1.3); GFR 101.1; POTASSIUM 4.4 mmol/L (3.5-5.1)
[2016-06-17] MEDS ORDERED: MORPHINE SULFATE 2 MG/ML DISP.SYRIN. IV PRN (07:00)
[2016-06-17] MEDS ORDERED: FENTANYL PF 100 MCG/2 ML VIAL. IV PRN ×2 (07:00)
[2016-06-17] MEDS ORDERED: LIDOCAINE 1% 1 ML SYRINGE. ID PRN (07:00)
[2016-06-17] MEDS ORDERED: FAMOTIDINE 20 MG/2 ML VIAL ONE (07:00)
[2016-06-17] MEDS ORDERED: PROCHLORPERAZINE 10 MG/2 ML VIAL. IV PRN (07:00)
[2016-06-17] MEDS ORDERED: HYDROMORPHONE 2 MG/ML VIAL. IV PRN (07:00)
[2016-06-17] MEDS ORDERED: PROPOFOL 20 ML IV ONE (07:00)
[2016-06-17] MEDS ORDERED: IV RINGERS,LACTATED 1000ML 1,000 ML IV SCH (07:00)
[2016-06-17] MEDS ORDERED: MIDAZOLAM HCL 2 MG/2 ML VIAL. ONE (07:00)
[2016-06-17] MEDS ORDERED: FENTANYL PF 100 MCG/2 ML VIAL. ONE (07:01)
[2016-06-17] MEDS ORDERED: LIDOCAINE 1% PF 30 ML VIAL. ONE (07:03)
[2016-06-17] MEDS ORDERED: BUPIVACAINE MPF 0.5% 30 ML VIAL. ONE (07:03)
[2016-06-17] MEDS: PANTOPRAZOLE 40 MG TABLET. PO SCH (07:19)
[2016-06-17] MEDS: PREGABALIN 50 MG CAPSULE PO SCH ×2 (09:15→20:31)
[2016-06-17] MEDS: FLUCONAZOLE 100 MG TABLET. PO SCH (09:15)
[2016-06-17] MEDS: LISINOPRIL 40 MG TABLET. PO SCH (09:16)
[2016-06-17] MEDS: AMLODIPINE BESYLATE 5 MG TABLET PO SCH (09:16)
[2016-06-17] MEDS: INSULIN ASPART 300 UNITS/3 ML INSULN.PEN SQ SCH ×3 (09:23→17:24)
--- NOTE | 2016-06-17 10:04 | PDOC ---
PROGRESS NOTES Chief Complaint Chief Complaint Diabetic foot ulcers ASSESSMENT AND PLAN: 1. Bilateral diabetic foot wounds, (R metacarpophalangeal joint, plantar surface, and L second digit.) s/p debridement in office by Dr Dave on 06/12. to bone. no bony abn noted on Xrays, but nonhealing, with hx MRSA, and nonresponse to PO Abx at home, concern for osteo. on Zosyn/Vanco, micafungin., dc plans based on ID recommendations. 2. Osteo in L 2nd toe: s/p amputation 3. DM2: good control with tradjenta as well as levemir plus ISS. hold janumet (metformin) for now. 4. diabetic neuropathy: on lyrica 5. HTN: well controlled on multi-drug home regimen. continue 6. HLD: on statin 7. Prophylaxis: lovenox Vitals Vitals Vital Signs Date Time Temp Pulse Resp B/P Pulse Ox O2 Delivery O2 Flow Rate FiO2 06/17/16 09:16 67 118/69 06/17/16 09:09 18 99 Room Air 06/17/16 08:18 98.8 98.8 Physical Exam General: Alert, Oriented X3, Cooperative Heart: Regular rate, Normal S1, Normal S2 Lungs: Clear Abdomen: Normal bowel sounds, No tenderness, No masses Extremities: Other Labs LABS Laboratory Tests Test 06/16/16 10:22 06/16/16 16:08 06/16/16 20:21 06/17/16 05:00 Glucose (Fingerstick) 209mg/dL (70-99) 222mg/dL (70-99) 256mg/dL (70-99) White Blood Count 7.1x10^3/uL (4.0-11.0) Red Blood Count 4.49x10^6/uL (4.30-5.70) Hemoglobin 12.7g/dL (13.0-17.5) Hematocrit 39.6% (39.0-53.0) Mean Corpuscular Volume 88fL (79-100) Mean Corpuscular Hemoglobin 28pg (25-35) Mean Corpuscular Hemoglobin Concent 32g/dL (31-37) Red Cell Distribution Width 13.8% (11.5-14.5) Platelet Count 307x10^3/uL (140-400) Neutrophils (%) (Auto) 53% (31-73) Lymphocytes (%) (Auto) 34% (24-48) Monocytes (%) (Auto) 10% (0-9) Eosinophils (%) (Auto) 2% (0-3) Basophils (%) (Auto) 1% (0-3) Neutrophils # (Auto) 3.8x10^3uL (1.8-7.7) Lymphocytes # (Auto) 2.4x10^3/uL (1.0-4.8) Monocytes # (Auto) 0.7x10^3/uL (0.0-1.1) Eosinophils # (Auto) 0.2x10^3/uL (0.0-0.7) Basophils # (Auto) 0.1x10^3/uL (0.0-0.2) Sodium Level 144mmol/L (136-145) Potassium Level 4.4mmol/L (3.5-5.1) Chloride Level 105mmol/L (98-107) Carbon Dioxide Level 26mmol/L (21-32) Anion Gap 13 (6-14) Blood Urea Nitrogen 12mg/dL (8-26) Creatinine 0.8mg/dL (0.7-1.3) Estimated GFR (Cockcroft-Gault) 101.1 Glucose Level 197mg/dL (70-99) Calcium Level 9.5mg/dL (8.5-10.1) Test 06/17/16 09:06 Glucose (Fingerstick) 157mg/dL (70-99) Comment Review of Relevant I have reviewed the following items eva (where applicable) has been applied. Labs Laboratory Tests Test 06/15/16 10:49 06/15/16 16:28 06/15/16 20:29 06/16/16 03:20 Glucose (Fingerstick) 183mg/dL (70-99) 184mg/dL (70-99) 248mg/dL (70-99) White Blood Count 7.6x10^3/uL (4.0-11.0) Red Blood Count 4.71x10^6/uL (4.30-5.70) Hemoglobin 13.5g/dL (13.0-17.5) Hematocrit 41.8% (39.0-53.0) Mean Corpuscular Volume 89fL (79-100) Mean Corpuscular Hemoglobin 29pg (25-35) Mean Corpuscular Hemoglobin Concent 32g/dL (31-37) Red Cell Distribution Width 14.0% (11.5-14.5) Platelet Count 303x10^3/uL (140-400) Neutrophils (%) (Auto) 53% (31-73) Lymphocytes (%) (Auto) 33% (24-48) Monocytes (%) (Auto) 11% (0-9) Eosinophils (%) (Auto) 3% (0-3) Basophils (%) (Auto) 1% (0-3) Neutrophils # (Auto) 4.0x10^3uL (1.8-7.7) Lymphocytes # (Auto) 2.5x10^3/uL (1.0-4.8) Monocytes # (Auto) 0.8x10^3/uL (0.0-1.1) Eosinophils # (Auto) 0.2x10^3/uL (0.0-0.7) Basophils # (Auto) 0.1x10^3/uL (0.0-0.2) Sodium Level 141mmol/L (136-145) Potassium Level 4.2mmol/L (3.5-5.1) Chloride Level 103mmol/L (98-107) Carbon Dioxide Level 28mmol/L (21-32) Anion Gap 10 (6-14) Blood Urea Nitrogen 15mg/dL (8-26) Creatinine 0.9mg/dL (0.7-1.3) Estimated GFR (Cockcroft-Gault) 88.3 Glucose Level 186mg/dL (70-99) Calcium Level 9.7mg/dL (8.5-10.1) Test 06/16/16 07:02 06/16/16 10:22 06/16/16 16:08 06/16/16 20:21 Glucose (Fingerstick) 137mg/dL (70-99) 209mg/dL (70-99) 222mg/dL (70-99) 256mg/dL (70-99) Test 06/17/16 05:00 06/17/16 09:06 White Blood Count 7.1x10^3/uL (4.0-11.0) Red Blood Count 4.49x10^6/uL (4.30-5.70) Hemoglobin 12.7g/dL (13.0-17.5) Hematocrit 39.6% (39.0-53.0) Mean Corpuscular Volume 88fL (79-100) Mean Corpuscular Hemoglobin 28pg (25-35) Mean Corpuscular Hemoglobin Concent 32g/dL (31-37) Red Cell Distribution Width 13.8% (11.5-14.5) Platelet Count 307x10^3/uL (140-400) Neutrophils (%) (Auto) 53% (31-73) Lymphocytes (%) (Auto) 34% (24-48) Monocytes (%) (Auto) 10% (0-9) Eosinophils (%) (Auto) 2% (0-3) Basophils (%) (Auto) 1% (0-3) Neutrophils # (Auto) 3.8x10^3uL (1.8-7.7) Lymphocytes # (Auto) 2.4x10^3/uL (1.0-4.8) Monocytes # (Auto) 0.7x10^3/uL (0.0-1.1) Eosinophils # (Auto) 0.2x10^3/uL (0.0-0.7) Basophils # (Auto) 0.1x10^3/uL (0.0-0.2) Sodium Level 144mmol/L (136-145) Potassium Level 4.4mmol/L (3.5-5.1) Chloride Level 105mmol/L (98-107) Carbon Dioxide Level 26mmol/L (21-32) Anion Gap 13 (6-14) Blood Urea Nitrogen 12mg/dL (8-26) Creatinine 0.8mg/dL (0.7-1.3) Estimated GFR (Cockcroft-Gault) 101.1 Glucose Level 197mg/dL (70-99) Calcium Level 9.5mg/dL (8.5-10.1) Glucose (Fingerstick) 157mg/dL (70-99) Laboratory Tests Test 06/16/16 10:22 06/16/16 16:08 06/16/16 20:21 06/17/16 05:00 Glucose (Fingerstick) 209mg/dL (70-99) 222mg/dL (70-99) 256mg/dL (70-99) White Blood Count 7.1x10^3/uL (4.0-11.0) Red Blood Count 4.49x10^6/uL (4.30-5.70) Hemoglobin 12.7g/dL (13.0-17.5) Hematocrit 39.6% (39.0-53.0) Mean Corpuscular Volume 88fL (79-100) Mean Corpuscular Hemoglobin 28pg (25-35) Mean Corpuscular Hemoglobin Concent 32g/dL (31-37) Red Cell Distribution Width 13.8% (11.5-14.5) Platelet Count 307x10^3/uL (140-400) Neutrophils (%) (Auto) 53% (31-73) Lymphocytes (%) (Auto) 34% (24-48) Monocytes (%) (Auto) 10% (0-9) Eosinophils (%) (Auto) 2% (0-3) Basophils (%) (Auto) 1% (0-3) Neutrophils # (Auto) 3.8x10^3uL (1.8-7.7) Lymphocytes # (Auto) 2.4x10^3/uL (1.0-4.8) Monocytes # (Auto) 0.7x10^3/uL (0.0-1.1) Eosinophils # (Auto) 0.2x10^3/uL (0.0-0.7) Basophils # (Auto) 0.1x10^3/uL (0.0-0.2) Sodium Level 144mmol/L (136-145) Potassium Level 4.4mmol/L (3.5-5.1) Chloride Level 105mmol/L (98-107) Carbon Dioxide Level 26mmol/L (21-32) Anion Gap 13 (6-14) Blood Urea Nitrogen 12mg/dL (8-26) Creatinine 0.8mg/dL (0.7-1.3) Estimated GFR (Cockcroft-Gault) 101.1 Glucose Level 197mg/dL (70-99) Calcium Level 9.5mg/dL (8.5-10.1) Test 06/17/16 09:06 Glucose (Fingerstick) 157mg/dL (70-99) Microbiology 06/13/16 Gram Stain - Final, Complete Medications Current Medications Acetaminophen (Tylenol) 325 mg PRN Q6HRS PRN PO MILD PAIN / TEMP; Start at 13:00 Acetaminophen/ Hydrocodone Bitart (Lortab 5/325) 1 tab PRN Q6HRS PRN PO MODERATE TO SEVERE PAIN Last administered on 06/13/16 16:02; Start 06/13/16 at 13:00 Hydralazine HCl (Apresoline) 10 mg PRN Q4HRS PRN IVP ELEVATED BP, SEE COMMENTS ; Start 06/13/16 at 13:00 Ondansetron HCl (Zofran) 4 mg PRN Q8HRS PRN IV NAUSEA/VOMITING; Start 06/13/16 at 13:00 Albuterol Sulfate (Ventolin Neb Soln) 2.5 mg PRN Q4HRS PRN NEB SHORTNESS OF BREATH Last administered on 06/16/16 15:05; Start 06/13/16 at 13:00 Insulin Aspart (Novolog) 0-9 UNITS TIDWMEALS SQ Last administered on 06/17/16 09:23; Start 06/13/16 at 17:00 Dextrose 12.5 gm 12.5 gm PRN Q15MIN PRN IV SEE COMMENTS; Start 06/13/16 at 13: 00 Piperacillin Sod/ Tazobactam Sod/ Sodium Chloride (Zosyn/Iv Sodium Chloride 0.9 % 50ml) 50 ml @ 100 mls/hr Q6HRS IV Last administered on 06/17/16 05:51; Start 06/13/16 at 20:00 Vancomycin HCl (Vanco Per Pharmacy) 1 each PRN DAILY PRN MC SEE COMMENTS Last administered on 06/16/16 13:27; Start 06/13/16 at 13:00 Vancomycin HCl 1 each 1 each PRN DAILY PRN MC SEE COMMENTS; Start 06/13/16 at 13:00; Status UNV Piperacillin Sod/ Tazobactam Sod 3.375 gm/Sodium Chloride 50 ml @ 100 mls/hr 1X ONCE IV Last administered on 06/13/16 14:42; Start 06/13/16 at 13:15; Stop 06/13/16 at 13:44; Status DC Vancomycin HCl/ Sodium Chloride (Iv Sodium Chloride 0.9% 500ml Bag) 500 ml @ 250 mls/hr ONCE ONCE IV Last administered on 06/13/16 15:56; Start 06/13/16 at 13:30; Stop 06/13/16 at 15:29; Status DC Amlodipine Besylate (Norvasc) 5 mg DAILY PO Last administered on 06/17/16 09: 16; Start 06/13/16 at 17:00 Atorvastatin Calcium (Lipitor) 20 mg QHS PO Last administered on 06/16/16 21: 08; Start 06/13/16 at 21:00 Lisinopril (Prinivil) 40 mg DAILY PO Last administered on 06/17/16 09:16; Start 06/13/16 at 17:00 Pantoprazole Sodium (Protonix) 40 mg DAILYAC PO Last administered on 06/16/16 06:10; Start 06/13/16 at 17:00 Pregabalin 200 mg 200 mg BID PO Last administered on 06/17/16 09:15; Start at 21:00 Vancomycin HCl/ Sodium Chloride (Iv Sodium Chloride 0.9% 500ml Bag) 500 ml @ 250 mls/hr Q12H IV Last administered on 06/17/16 03:51; Start 06/14/16 at 04: 00 Vancomycin HCl 1 each 1X ONCE MC ; Start 06/15/16 at 03:30; Stop 06/15/16 at 03 :31; Status DC Temazepam (Restoril) 15 mg PRN QHS PRN PO INSOMNIA Last administered on 21:08; Start 06/13/16 at 22:00 Insulin Detemir (Levemir) 25 units QHS SQ Last administered on 06/16/16 21:15 ; Start 06/14/16 at 21:00 Fluconazole (Diflucan) 200 mg DAILY PO Last administered on 06/17/16 09:15; Start 06/16/16 at 09:30 Fentanyl Citrate (Fentanyl 2ml Vial) 25 mcg PRN Q5MIN PRN IV MILD PAIN; Start 06/17/16 at 07:00; Stop 06/18/16 at 06:59 Fentanyl Citrate (Fentanyl 2ml Vial) 50 mcg PRN Q5MIN PRN IV MODERATE PAIN; Start 06/17/16 at 07:00; Stop 06/18/16 at 06:59 Morphine Sulfate 1 mg 1 mg PRN Q10MIN PRN IV SEVERE PAIN; Start 06/17/16 at 07: 00; Stop 06/18/16 at 06:59 Lactated Ringer's (Iv Lactated Ringers) 1,000 ml @ 30 mls/hr Q24H IV Last administered on 06/17/16 07:23; Start 06/17/16 at 07:00; Stop 06/17/16 at 18:59 Lidocaine HCl 2 ml 1X PRN PRN ID IV START; Start 06/17/16 at 07:00; Stop at 06:59 Hydromorphone HCl (Dilaudid) 0.5 mg PRN Q10MIN PRN IV SEVERE PAIN, Second choice; Start 06/17/16 at 07:00; Stop 06/18/16 at 06:59 Prochlorperazine Edisylate (Compazine) 5 mg PACU PRN PRN IV NAUSEA; Start 06/17 at 07:00; Stop 06/18/16 at 06:59 Famotidine 20 mg 20 mg STK-MED ONCE .ROUTE ; Start 06/17/16 at 07:00; Stop 06/17 at 07:01; Status DC Propofol (Diprivan) 20 ml @ As Directed STK-MED ONCE IV ; Start 06/17/16 at 07: 00; Stop 06/17/16 at 07:01; Status DC Midazolam HCl (Versed) 2 mg STK-MED ONCE .ROUTE ; Start 06/17/16 at 07:00; Stop 06/17/16 at 07:01; Status DC Fentanyl Citrate (Fentanyl 2ml Vial) 100 mcg STK-MED ONCE .ROUTE ; Start at 07:01; Stop 06/17/16 at 07:02; Status DC Lidocaine HCl 30 ml STK-MED ONCE .ROUTE Last administered on 06/17/16 07:33; Start 06/17/16 at 07:03; Stop 06/17/16 at 07:04; Status DC Bupivacaine HCl (Sensorcaine Mpf 0.5%) 30 ml STK-MED ONCE .ROUTE Last administered on 06/17/16 07:33; Start 06/17/16 at 07:03; Stop 06/17/16 at 07:04 ; Status DC Active Scripts Active Amlodipine Besylate 5 Mg Tablet 5 Mg PO DAILY Reported Soliqua 100 Unit-33 Mcg/ml Pen (Insulin Glargine/Lixisenatide) 3 Ml Insuln.pen 3 Ml SQ Vitamin D3 (Cholecalciferol (Vitamin D3)) 1,000 Unit Tablet 2 Tab PO DAILY Vitamin B-12 (Cyanocobalamin (Vitamin B-12)) 1,000 Mcg Tablet 1 Tab PO DAILY Omeprazole 20 Mg Capsule. 1 Cap PO DAILY Aspir 81 (Aspirin) 81 Mg Tablet.dr 81 Mg PO DAILY Levemir (Insulin Detemir) 100 Unit/1 Ml Vial 25 Unit SQ HS Atorvastatin Calcium 20 Mg Tablet Janumet 50-1,000 Mg Tablet (Sitagliptin Phos/Metformin Hcl) 1 Each Tablet Lisinopril 40 Mg Tablet Farxiga (Dapagliflozin Propanediol) 10 Mg Tablet Lyrica (Pregabalin) 200 Mg Capsule Celebrex (Celecoxib) 200 Mg Capsule 1 Cap PO DAILY Vitals/I & O Vital Sign - Last 24 Hours 06/16/16 06/16/16 06/16/16 06/16/16 11:00 15:00 15:06 19:00 Temp 97.8 97.8 97.0 97.8 97.8 97.0 Pulse 86 80 81 Resp 20 20 20 B/P 145/80 106/61 105/64 Pulse Ox 90 97 95 O2 Delivery Room Air Room Air Room Air Room Air 06/16/16 06/16/16 06/17/16 06/17/16 20:00 22:49 03:12 07:19 Temp 97.5 97.9 97.1 97.5 97.9 97.1 Pulse 75 79 81 Resp 18 18 20 B/P 107/72 127/78 136/82 Pulse Ox 94 96 96 O2 Delivery Room Air Room Air Room Air Room Air 06/17/16 06/17/16 06/17/16 06/17/16 07:35 08:18 08:30 08:33 Temp 98.8 98.8 Pulse 80 80 Resp 22 19 B/P 135/70 114/70 Pulse Ox 96 99 O2 Delivery Room Air Room Air Room Air Room Air 06/17/16 06/17/16 06/17/16 06/17/16 08:48 09:09 09:16 09:16 Pulse 77 67 67 67 Resp 24 18 B/P 122/75 118/69 118/69 118/69 Pulse Ox 97 99 O2 Delivery Room Air Room Air Intake and Output 06/16/16 06/16/16 06/17/16 15:00 23:00 07:00 Intake Total 720 ml 1040 ml 0 ml Balance 720 ml 1040 ml 0 ml DAVID TSE MD Jun 17, 2016 10:04
--- NOTE | 2016-06-17 10:28 | PDOC ---
Infectious Disease Note Subjective Subjective Comfortable, denies pain. surgery went well Dressings recently changed Less cough ROS ROS GEN: Denies fevers, chills, sweats HEENT: Denies blurred vision, sore throat CV: Denies chest pain RESP: Denies shortness of air, cough GI: Denies n/v/d NEURO: Denies confusion, dizziness MSK: Denies weakness, joint pain/swelling Vital Sign Vital Signs Vital Signs Date Time Temp Pulse Resp B/P Pulse Ox O2 Delivery O2 Flow Rate FiO2 06/17/16 10:00 80 127/79 06/17/16 09:45 14 Room Air 06/17/16 09:30 97.9 99 97.9 Physical Exam PHYSICAL EXAM GENERAL: NAD, Alert HEENT: PERRL, OC/OP -clear NECK: Supple, no JVD, no LN LUNGS: Clear HEART: S1S2, no gallop, no murmur ABD: Soft, NT, no organomegaly, no rebound, obese EXT: No edema, no cyanosis. Feet dressed post-op ORTHOPEDIC PODIATRIST: Alert, oriented x 3, no focal neurologic deficit SKIN: No rash IV: ok Labs Lab Laboratory Tests Test 06/16/16 16:08 06/16/16 20:21 06/17/16 05:00 06/17/16 09:06 Glucose (Fingerstick) 222mg/dL (70-99) 256mg/dL (70-99) 157mg/dL (70-99) White Blood Count 7.1x10^3/uL (4.0-11.0) Red Blood Count 4.49x10^6/uL (4.30-5.70) Hemoglobin 12.7g/dL (13.0-17.5) Hematocrit 39.6% (39.0-53.0) Mean Corpuscular Volume 88fL (79-100) Mean Corpuscular Hemoglobin 28pg (25-35) Mean Corpuscular Hemoglobin Concent 32g/dL (31-37) Red Cell Distribution Width 13.8% (11.5-14.5) Platelet Count 307x10^3/uL (140-400) Neutrophils (%) (Auto) 53% (31-73) Lymphocytes (%) (Auto) 34% (24-48) Monocytes (%) (Auto) 10% (0-9) Eosinophils (%) (Auto) 2% (0-3) Basophils (%) (Auto) 1% (0-3) Neutrophils # (Auto) 3.8x10^3uL (1.8-7.7) Lymphocytes # (Auto) 2.4x10^3/uL (1.0-4.8) Monocytes # (Auto) 0.7x10^3/uL (0.0-1.1) Eosinophils # (Auto) 0.2x10^3/uL (0.0-0.7) Basophils # (Auto) 0.1x10^3/uL (0.0-0.2) Sodium Level 144mmol/L (136-145) Potassium Level 4.4mmol/L (3.5-5.1) Chloride Level 105mmol/L (98-107) Carbon Dioxide Level 26mmol/L (21-32) Anion Gap 13 (6-14) Blood Urea Nitrogen 12mg/dL (8-26) Creatinine 0.8mg/dL (0.7-1.3) Estimated GFR (Cockcroft-Gault) 101.1 Glucose Level 197mg/dL (70-99) Calcium Level 9.5mg/dL (8.5-10.1) Objective Assessment Cellulitis and abscess of diabetic wound of right foot. s/p I and D. MRSA Infected diabetic wound with bone exposure of 2nd digit of left foot s/p amp today Chronic nonhealing diabetic wounds, bilateral feet Diabetes with neuropathy URI Plan Plan of Care Continue vancomycin and Zosyn Add fluconazole Hope to change to po soon if wounds closes Monitor WBC, Cr and temp f/u cultures Supportive care D/w mother SARA BAL MD Jun 17, 2016 10:28
--- NOTE | 2016-06-17 12:26 | OP ---
DATE OF SURGERY: 06/17/2016 POSTOPERATIVE NOTE PREOPERATIVE DIAGNOSES: 1. Osteomyelitis with diabetic foot ulceration, second digit, left foot. 2. Deep abscess, right forefoot. POSTOPERATIVE DIAGNOSES: 1. Osteomyelitis with diabetic foot ulceration, second digit, left foot. 2. Deep abscess, right forefoot. PROCEDURE: 1. Partial amputation, second digit, left foot with primary closure. 2. I and D of deep abscess, right foot. SURGEON: Yesica Painter DPM. ASSISTANTS: No assistants. ESTIMATED BLOOD LOSS: Less than 5 mL. SPECIMENS: Distal phalanx and head of the middle phalanx of the second digit, left foot in addition to aerobic and anaerobic cultures from the bone of the distal phalanx of the second digit, left foot. DESCRIPTION OF PROCEDURE: The patient left the operating room with vital signs stable and neurovascular status intact to all digits of bilateral foot. He will be readmitted to [facility] fifth floor and resume all preoperative orders. YESICA PAINTER DPM DR: TERESA/gabriel JOB#: [id number] / [id number]
--- NOTE | 2016-06-17 13:58 | OP ---
DATE OF SURGERY: 06/17/2016 PREOPERATIVE DIAGNOSES: 1. Osteomyelitis with diabetic foot ulceration, second digit, left foot. 2. Abscess, right forefoot with cellulitis. POSTOPERATIVE DIAGNOSES: 1. Osteomyelitis with diabetic foot ulceration, second digit, left foot. 2. Abscess, right forefoot with cellulitis. PROCEDURE: 1. Partial amputation, second digit, left foot. 2. Incision and debridement of abscess, right foot. SURGEON: Phong Painter DPM. ANESTHESIA: Local with IV sedation. TECHNIQUE: The patient was brought to the operating room and placed on the operating table in a supine position with an IV intact for intravenous sedation. Local anesthesia was then obtained utilizing 1% lidocaine and 0.5% Marcaine in the form of a digital block to the left foot and a first ray Hackett block to the right foot. The lower extremities were then prepped and draped in the usual and aseptic manner. PROCEDURE: 1. The left foot was then exsanguinated utilizing a Teofilo bandage, tourniquet with the same Teofilo bandage to be maintained at the level of the left ankle for hemostasis. Attention was then directed to the second digit where a modified fishmouth incision was performed about the distal interphalangeal joint region. The skin incision was deepened through subcutaneous tissues down to the capsule of the distal interphalangeal joint. The distal phalanx was then disarticulated from the remainder of the toe and sent as a specimen for pathology. Dissection was carried down. The subcutaneous tissues were then carefully reflected away from the head of the middle phalanx, exposing the structure into the site. It should be noted that the bone appeared normal with glistening white cartilage. Next, utilizing a sagittal saw, the head was resected and also sent to pathology. The bony edges of the remaining middle phalanx were then smoothed with a sagittal saw. The wound was then irrigated using copious amounts of sterile saline. The incision site was then examined for any other pathological findings. None were noted. The subcutaneous tissues were then reapproximated using ____ Vicryl. The skin was reapproximated using 4-0 nylon via a simple interrupted sutures. Xeroform was applied over the incision site followed by sterile gauze compression dressing. The tourniquet was released. Immediate warmth and perfusion were noted to return to the remaining digits of the left foot with capillary refill time less than 2 seconds. Attention was then directed to the right foot for the second procedure where the right foot was exsanguinated utilizing a Teofilo bandage, tourniquet with a same Teofilo bandage to be maintained to the level of the right ankle for hemostasis. Attention was paid to the plantar ulcer site underlying the first metatarsal head region. Next, utilizing a 15 blade and sharp dissection, the ulcer site was lengthened both proximally and distally and linearly using the curet as a guide as far back as the wound tract, which ultimately made for approximately 5-6 cm long linear incision extending well into the subcutaneous tissues. There is no exposure of bone or periosteum noted to follow the incision. There is no active wound exudate nor odor appreciated. The wound base was then irrigated using copious amounts of sterile saline and examined for any other pathological findings. None were noted. AQUACEL Ag drain was placed into the incision site and a sterile gauze compression dressing was applied to the right foot. The tourniquet was released. Immediate warmth and perfusion noted to return to all digits of the right foot. Capillary fill time less than 2 seconds. Specimens that were sent to pathology include the distal aspect of the second digit as well as the head of the proximal phalanx. In addition, I used a rongeur to remove a small portion of the distal phalanx of the second digit for bone culture for aerobic and anaerobic bacteria. The patient was sent back to his inpatient room and order was written to resume all preoperative orders. He may be discharged tomorrow on oral antibiotics, pending agreement from Infectious Disease. PHONG PAINTER DPM DR: TERESA/gabriel JOB#: [id number] / [id number]
[2016-06-17] MEDS: ATORVASTATIN CALCIUM 20 MG TABLET PO SCH (20:30)
[2016-06-17] MEDS: TEMAZEPAM 15 MG CAPSULE PO PRN (20:31)
[2016-06-17] MEDS: INSULIN DETEMIR 300 UNITS/3 ML INSULN.PEN. SQ SCH (20:37)
[2016-06-18] MEDS: VANCOMYCIN 1.5 GM in IV NORMAL SALINE 500ML BAG 500 ML IV SCH (03:47)
[2016-06-18] MEDS: PIPERACILLIN/TAZOBACTAM 3.375 GM in IV NORMAL SALINE 50ML 50 ML IV SCH (05:57)
[2016-06-18 07:19] LABS: CALCIUM 9.3 mg/dL (8.5-10.1); CREATININE 0.8 mg/dL (0.7-1.3); GFR 101.1; POTASSIUM 4.2 mmol/L (3.5-5.1)
[2016-06-18 07:31] LABS: BASO # 0.1 x10^3/uL (0.0-0.2); BASO % 1 % (0-3); EOS % 2 % (0-3); HEMATOCRIT 40.3 % (39.0-53.0); HEMOGLOBIN 12.9 g/dL (13.0-17.5); LYMPH # 2.7 x10^3/uL (1.0-4.8); LYMPH % 28 % (24-48); MEAN CORPUSCULAR HEMOGLOBIN 29 pg (25-35); MEAN CORPUSCULAR HGB CONC 32 g/dL (31-37); MEAN CORPUSCULAR VOLUME 89 fL (79-100); MONO % 10 % (0-9); NEUT % 60 % (31-73); PLATELET COUNT 305 x10^3/uL (140-400); RED BLOOD COUNT 4.52 x10^6/uL (4.30-5.70); RED CELL DISTRIBUTION WIDTH 14.1 % (11.5-14.5); WHITE BLOOD COUNT 9.9 x10^3/uL (4.0-11.0)
[2016-06-18 07:40] VITALS: BP 151/92
[2016-06-18] MEDS: INSULIN ASPART 300 UNITS/3 ML INSULN.PEN SQ SCH ×2 (08:00→12:00)
[2016-06-18] MEDS: PANTOPRAZOLE 40 MG TABLET. PO SCH (08:36)
[2016-06-18] MEDS: AMLODIPINE BESYLATE 5 MG TABLET PO SCH (08:36)
[2016-06-18] MEDS: FLUCONAZOLE 100 MG TABLET. PO SCH (08:36)
[2016-06-18] MEDS: PREGABALIN 50 MG CAPSULE PO SCH (08:36)
[2016-06-18] MEDS: LISINOPRIL 40 MG TABLET. PO SCH (08:38)
[2016-06-18 10:41] VITALS: BP 140/84
--- NOTE | 2016-06-18 11:18 | PDOC ---
Infectious Disease Note Subjective Subjective Comfortable, denies pain. surgery went well Ready to go home Less cough ROS ROS GEN: Denies fevers, chills, sweats HEENT: Denies blurred vision, sore throat CV: Denies chest pain RESP: Denies shortness of air, cough GI: Denies n/v/d NEURO: Denies confusion, dizziness MSK: Denies weakness, joint pain/swelling Vital Sign Vital Signs Vital Signs Date Time Temp Pulse Resp B/P Pulse Ox O2 Delivery O2 Flow Rate FiO2 06/18/16 10:41 97.5 73 20 140/84 97 Room Air 97.5 Physical Exam PHYSICAL EXAM GENERAL: NAD, Alert HEENT: PERRL, OC/OP- clear NECK: Supple, no JVD, no LN LUNGS: Clear HEART: S1S2, no gallop, no murmur ABD: Soft, NT, no organomegaly, no rebound EXT: No edema, no cyanosis, Dressed. Yeast TRAFFIC SURVEY TECHNICIAN: Alert, oriented x 3, no focal neurologic deficit SKIN: No rash IV: ok Labs Lab Laboratory Tests Test 06/17/16 16:02 06/17/16 20:07 06/18/16 05:55 06/18/16 07:45 Glucose (Fingerstick) 181mg/dL (70-99) 204mg/dL (70-99) 143mg/dL (70-99) White Blood Count 9.9x10^3/uL (4.0-11.0) Red Blood Count 4.52x10^6/uL (4.30-5.70) Hemoglobin 12.9g/dL (13.0-17.5) Hematocrit 40.3% (39.0-53.0) Mean Corpuscular Volume 89fL (79-100) Mean Corpuscular Hemoglobin 29pg (25-35) Mean Corpuscular Hemoglobin Concent 32g/dL (31-37) Red Cell Distribution Width 14.1% (11.5-14.5) Platelet Count 305x10^3/uL (140-400) Neutrophils (%) (Auto) 60% (31-73) Lymphocytes (%) (Auto) 28% (24-48) Monocytes (%) (Auto) 10% (0-9) Eosinophils (%) (Auto) 2% (0-3) Basophils (%) (Auto) 1% (0-3) Neutrophils # (Auto) 5.9x10^3uL (1.8-7.7) Lymphocytes # (Auto) 2.7x10^3/uL (1.0-4.8) Monocytes # (Auto) 1.0x10^3/uL (0.0-1.1) Eosinophils # (Auto) 0.2x10^3/uL (0.0-0.7) Basophils # (Auto) 0.1x10^3/uL (0.0-0.2) Sodium Level 144mmol/L (136-145) Potassium Level 4.2mmol/L (3.5-5.1) Chloride Level 105mmol/L (98-107) Carbon Dioxide Level 28mmol/L (21-32) Anion Gap 11 (6-14) Blood Urea Nitrogen 11mg/dL (8-26) Creatinine 0.8mg/dL (0.7-1.3) Estimated GFR (Cockcroft-Gault) 101.1 Glucose Level 162mg/dL (70-99) Calcium Level 9.3mg/dL (8.5-10.1) Objective Assessment Cellulitis and abscess of diabetic wound of right foot. s/p I and D. MRSA Infected diabetic wound with bone exposure of 2nd digit of left foot s/p amp today Chronic nonhealing diabetic wounds, bilateral feet Diabetes with neuropathy URI Plan Plan of Care Discontinue vancomycin and Zosyn. Begin Zyvox Rx written for 7 dyas Cont fluconazole for 7 days D/w Dr. Dave F/u with SARA Navarro MD Jun 18, 2016 11:18
[2016-06-18] MEDS ORDERED: LINEZOLID 600 MG TABLET PO SCH (12:00)
--- NOTE | 2016-06-19 17:36 | PATHOLOGY ---
PATHOLOGY REPORT * * * * * * * * FINAL DIAGNOSIS: Distal toe and separate segment of bone, left second toe partial amputation: - Ulceration and necrosis of distal toe with acute cellulitis and focal acute osteomyelitis of distal phalangeal bone. - Separate segment of bone negative for acute osteomyelitis or cellulitis. (JPM:csd; d/t: 06/19/2016) REPORT ELECTRONICALLY SIGNED BY: Poli Mcmahon M.D. DATE/TIME: 06/19/2016 17:35 * * * * * * * * GROSS PATHOLOGY: The specimen is received in formalin labeled "Yesica Peralta, left second toe partial amputation". Received is a partial amputated digit measuring 2.5 x 2.4 x 1.7 cm in greatest dimensions. The bone margin is smooth and concave in appearance, consistent with disarticulation. The bone and soft tissue margins are inked black. The nail is present displaying a light reed and thickened appearance measuring 1.4 x 0.7 x 0.3 cm. At the distal aspect of the specimen, there is a poorly circumscribed, irregular in contour ojeda-reed lesion measuring 1.9 x 1.2 cm, which grossly approaches the skin margin. A human resources representative full-length cross-section is submitted in cassette A1, following decalcification. Also received within the specimen container is an additional segment of bone displaying one smooth, convex margin and one blunt margin measuring 1.1 x 0.7 x 0.5 cm in greatest dimensions. The specimen is submitted entirely in cassette A2, following decalcification. (CAA; 06/18/2016) INITIAL CPT CODE(S): A; 90680, 96267 Professional services performed by [facility] at [address] [address] Technical services performed by [facility] at [address] [place] [address], [facility] [address] [address]. SPECIMEN(S) RECEIVED: A.Left second toe, partial amputation CLINICAL HISTORY: Osteomyelitis left 2nd toe PATIENT: YESICA PERALTA /AGE: 5 1960 (Age: 55) PATIENT #: [id number] ALT CASE #: SPECIMEN COLLECTION DATE: 06/17/2016 SPECIMEN RECEIVED DATE: 06/17/2016 [facility] - [address] [place] [address] - PHONE: [phone] * * * END OF REPORT * * *
== END 2016-06-18 15:00 | disposition home health service (06) | DRG 617 ==
LOC: 5 SOUTH 11:28
PROVIDERS: ADMIT Internal Medicine; ATTEND Internal Medicine
PROC: 0H9MX0Z Drainage of Right Foot Skin with Drainage Device, External Approach (ICD-10-PCS; 2016-06-17)
PROC: 0Y6S0Z3 Detachment at Left 2nd Toe, Low, Open Approach (ICD-10-PCS; principal; 2016-06-17 07:30)
DX: E11.69 Type 2 diabetes mellitus with other specified complication (principal); M86.172 Other acute osteomyelitis, left ankle and foot; L02.611 Cutaneous abscess of right foot; L03.115 Cellulitis of right lower limb; B95.62 Methicillin resistant Staphylococcus aureus infection as the cause of diseases classified elsewhere; E11.621 Type 2 diabetes mellitus with foot ulcer; L97.519 Non-pressure chronic ulcer of other part of right foot with unspecified severity; L97.529 Non-pressure chronic ulcer of other part of left foot with unspecified severity; E11.42 Type 2 diabetes mellitus with diabetic polyneuropathy; E11.65 Type 2 diabetes mellitus with hyperglycemia; E78.00 Pure hypercholesterolemia, unspecified; E78.5 Hyperlipidemia, unspecified; G60.8 Other hereditary and idiopathic neuropathies; I10 Essential (primary) hypertension; J06.9 Acute upper respiratory infection, unspecified; Z80.7 Family history of other malignant neoplasms of lymphoid, hematopoietic and related tissues; Z83.3 Family history of diabetes mellitus; Z86.14 Personal history of Methicillin resistant Staphylococcus aureus infection; Z89.429 Acquired absence of other toe(s), unspecified side; Z79.899 Other long term (current) drug therapy; Z88.8 Allergy status to other drugs, medicaments and biological substances
CPT/HCPCS: 36415; 73630; 80048; 80202; 82947; 85027; 85651; 86140; 87071; 87075; 87186; 87205; 88305; 88311; 93005; 94250; 94640; J1815; J2250; J2543; J2704; J3010; J3370; J3490; J7040; J7120; S0028

== ENCOUNTER → 2016-07-07 | Outpatient (CLI) | payer OTHER ==
[2016-06-18 10:41] VITALS: BP 140/84
== END | disposition home or self-care (01) ==
LOC: PNCL 10:41
PROVIDERS: ATTEND Anesthesiology
DX: M47.22 Other spondylosis with radiculopathy, cervical region (principal); E11.69 Type 2 diabetes mellitus with other specified complication; M86.172 Other acute osteomyelitis, left ankle and foot; E11.42 Type 2 diabetes mellitus with diabetic polyneuropathy; I10 Essential (primary) hypertension; E78.5 Hyperlipidemia, unspecified; E78.00 Pure hypercholesterolemia, unspecified; Z86.14 Personal history of Methicillin resistant Staphylococcus aureus infection
CPT/HCPCS: 99212

== ENCOUNTER → 2016-07-07 | Outpatient (CLI) | payer OTHER ==
[2016-06-18 10:41] VITALS: BP 140/84
--- NOTE | 2016-07-08 00:27 | PN ---
DATE: DIAGNOSES: Cervical radiculopathy with cervical degenerative disk disease and cervical spinal stenosis. HISTORY OF PRESENT ILLNESS: The patient is a 55-year-old male who returns for followup status post cervical epidural steroid injection x 1 on 05/28/2016. The patient ____ about 50% improvement for several weeks after the injection, and the pain is again returning in the base of the neck and the right shoulder and arm as it was previously, but still 2-3 on a scale of 10. The patient reports it is intermittent, but is not present every day, also causes lightheadedness at times. He has had chiropractic manipulation twice since his last visit and he reports that this has helped him significantly decrease the pain in the base of the neck. The patient's right arm is only better occasionally with radiation to the arm as previously, but again only inconsistently worse with activity, standing, walking, reaching over his head or carrying any items and his right arm. The patient reports otherwise he does fairly well and he is sleeping well at night. The patient reports no new motor or sensory deficits, no new bowel or bladder incontinence. The patient is having some significant pain with his bilateral feet. He has a wound VAC on his right foot and the left one has just been out with amputation of the second toe on the left foot. He has been hospitalized for 5 days for staph infection until just recently with diabetic foot ulcers and wound treatment ongoing. PHYSICAL EXAMINATION: VITAL SIGNS: The patient's blood pressure 111/79, pulse 94, respirations 18, temperature is 98.4 degrees Fahrenheit, and weight is 251 pounds. GENERAL: The patient is awake, alert, oriented, appropriate, very pleasant demeanor. HEENT: Head shows normocephalic and atraumatic. The patient is wearing eye glasses. Extraocular movements are intact and symmetrical. Oral cavity, mucous membranes are moist and pink. Dentition is intact. NECK: Shows anterior throat supple without palpable lymphadenopathy noted. Swallow reflex is symmetrical. CHEST: Shows normal on inspection. Breath sounds are clear to auscultation bilaterally. HEART: Shows S1 and S2 clear. ABDOMEN: Soft, nontender, and nondistended. No palpable organomegaly. No rebound or guarding demonstrated. BACK: Shows spine grossly midline. Cervical paraspinous muscle shows some moderate tenderness to palpation in the inferior aspect of cervical paraspinous muscles, more on the right than the left, but present and symmetrical bilaterally without trigger points or radiation of pain. EXTREMITIES: The patient's upper extremities show deep tendon reflexes at 2+ in the biceps and triceps tendons. Motor exam is approximately 4 on scale of 5 with right transport specialist strength and 5/5 on the left. Peripheral pulses are 2+ on radial distribution. The patient's lower extremities show wound VAC with bandaging and wound VAC boot on the right foot and bandaging in the soft boot on the left foot as well. Options were discussed with the patient. The patient's old chart was reviewed and his current medication regimen updated. Current review of systems updated today as well. We will hold on any further injections at this time as the pain is only intermittent at this time and is having some good results with some therapies and chiropractic currently, also with the patient's recent hospitalization and diabetic foot ulcers. We will avoid any steroids at this time as this may complicate his healing process with the foot ulcers and his blood sugar levels. The patient would like to wait until he is close to returning to work, which reports should be about 08/19/2015 for a second injection and will allow time for his foot ulcers to heel and his blood sugars to normalize as well. The patient will follow up in approximately 6 weeks or so and we will evaluate his pain at that time and potential cervical epidural steroid injection. MAURO SERRANO MD DR: VERITO/gabriel JOB#: [id number] / [id number]
== END | disposition home or self-care (01) ==
LOC: SPEC 17:23
PROVIDERS: ATTEND Podiatrist Foot & Ankle Surgery
DX: I10 Essential (primary) hypertension (principal); L97.511 Non-pressure chronic ulcer of other part of right foot limited to breakdown of skin; E11.42 Type 2 diabetes mellitus with diabetic polyneuropathy
CPT/HCPCS: 87071; 87075; 87205

== ENCOUNTER → 2016-07-14 | Outpatient (CLI) | payer OTHER ==
[2016-06-18 10:41] VITALS: BP 140/84
[2016-07-14 11:27] LABS: BASO # 0.1 x10^3/uL (0.0-0.2); BASO % 1 % (0-3); EOS % 2 % (0-3); HEMATOCRIT 45.4 % (39.0-53.0); HEMOGLOBIN 14.5 g/dL (13.0-17.5); LYMPH # 2.7 x10^3/uL (1.0-4.8); LYMPH % 36 % (24-48); MEAN CORPUSCULAR HEMOGLOBIN 28 pg (25-35); MEAN CORPUSCULAR HGB CONC 32 g/dL (31-37); MEAN CORPUSCULAR VOLUME 88 fL (79-100); MONO % 9 % (0-9); NEUT % 53 % (31-73); PLATELET COUNT 331 x10^3/uL (140-400); RED BLOOD COUNT 5.16 x10^6/uL (4.30-5.70); RED CELL DISTRIBUTION WIDTH 14.4 % (11.5-14.5); WHITE BLOOD COUNT 7.7 x10^3/uL (4.0-11.0)
[2016-07-14 11:38] LABS: ALBUMIN 3.8 g/dL (3.4-5.0); CALCIUM 9.5 mg/dL (8.5-10.1); CREATININE 0.9 mg/dL (0.7-1.3); GFR 88.3; POTASSIUM 4.9 mmol/L (3.5-5.1); TOTAL BILIRUBIN 0.4 mg/dL (0.2-1.0); TOTAL PROTEIN 7.8 g/dL (6.4-8.2)
== END | disposition home or self-care (01) ==
LOC: LAB 11:03
PROVIDERS: ATTEND Podiatrist Foot & Ankle Surgery
DX: E11.42 Type 2 diabetes mellitus with diabetic polyneuropathy (principal); M86.172 Other acute osteomyelitis, left ankle and foot; L97.513 Non-pressure chronic ulcer of other part of right foot with necrosis of muscle
CPT/HCPCS: 36415; 80053; 85027; 85651

== ENCOUNTER → 2017-12-17 | Day surgery (SDC) | payer OTHER ==
[~2017-12-17] MED LIST changes: -AMLO5TAB2 PO; +AMLO5TAB7 PO; +GLIP5TAB10 PO; +IV RINGERS,LACTATED 1000ML 1,000 ML IV SCH; +LIDOCAINE 1% PF 2 ML VIAL. ID PRN; +LIDOCAINE 2% PF Vial for OR 5 ML VIAL. ONE; +LISI-130; -LISI40TA; +METF500T16 PO; -METF500T4 PO; +MIDAZOLAM HCL/PF 2 MG/2 ML VIAL. IV PRN; +PROPOFOL 40 ML IV ONE; +fentaNYL PF VIAL 100 MCG/2 ML VIAL IV PRN
[2017-12-17 14:50] VITALS: BP 109/68
--- NOTE | 2017-12-18 15:07 | PATHOLOGY ---
[facility] Accession Number: [id number] . 01 Material submitted: . ANTRAL POLYP BIOPSY . 01 Clinical history: . Abdominal pain . 02 Diagnosis: Gastric biopsies, antral polyp: - Hyperplastic polyp with focal mild chronic inflammation. [facility]/12/18/2017 . 02 Comment: Sections of the gastric biopsy reveal polypoid segments of gastric antral mucosa showing congestion, focal foveolar hyperplasia, and focal mild chronic inflammation. The findings are consistent with a hyperplastic polyp. There are no adenomatous changes or evidence of malignancy. . (JPM:mml; 12/18/17) . 02 Electronically signed: . Poli Mcmahon MD, Pathologist NPI- [id number] . 01 Gross description: . Received in formalin labeled "Phong Mitchell, antral polyp BX," are 2 segments of reed soft tissue measuring 0.7 x 0.2 x 0.2 cm in aggregate dimensions and ranging from 0.3 to 0.4 cm in maximum dimension. The specimen is submitted entirely in cassette A1. (TSD; 12/17/2017) TOB/TOB . 02 Pathologist provided ICD-10: K29.50, K31.7 . 02 CPT . 498768 Performed at: 01 [facility] [address] [facility] [address], [place] [id number] MD Sina Rainey MD Phone: [phone] Performed at: 02 [facility] [place] [address] [place], [place] [id number] MD Poli Mcmahon MD Phone: [phone]
== END | disposition home or self-care (01) ==
LOC: SURG 12:27
PROVIDERS: ATTEND Internal Medicine Gastroenterology
DX: K31.7 Polyp of stomach and duodenum (principal); K29.50 Unspecified chronic gastritis without bleeding; K64.0 First degree hemorrhoids; Z88.6 Allergy status to analgesic agent; E11.9 Type 2 diabetes mellitus without complications; M19.90 Unspecified osteoarthritis, unspecified site; K21.9 Gastro-esophageal reflux disease without esophagitis; I10 Essential (primary) hypertension; E78.00 Pure hypercholesterolemia, unspecified; D51.0 Vitamin B12 deficiency anemia due to intrinsic factor deficiency; Z87.11 Personal history of peptic ulcer disease; Z83.3 Family history of diabetes mellitus; Z82.49 Family history of ischemic heart disease and other diseases of the circulatory system; Z72.89 Other problems related to lifestyle; Z79.899 Other long term (current) drug therapy; Z79.84 Long term (current) use of oral hypoglycemic drugs; Z79.82 Long term (current) use of aspirin; Z98.890 Other specified postprocedural states
CPT/HCPCS: 43239; 45378; 82962; 88305; J2001; J2704

== ENCOUNTER → 2017-12-30 | Outpatient (CLI) | payer OTHER ==
[2017-12-17 14:50] VITALS: BP 109/68
[~2017-12-30] MED LIST changes: -IV RINGERS,LACTATED 1000ML 1,000 ML IV SCH; -LIDOCAINE 1% PF 2 ML VIAL. ID PRN; -LIDOCAINE 2% PF Vial for OR 5 ML VIAL. ONE; -MIDAZOLAM HCL/PF 2 MG/2 ML VIAL. IV PRN; -PROPOFOL 40 ML IV ONE; -fentaNYL PF VIAL 100 MCG/2 ML VIAL IV PRN
--- NOTE | 2017-12-30 15:08 | RAD ---
Gastric Emptying Study 12/30/2017 Indication: Nausea Procedure: Anterior and posterior projection static images are obtained over the stomach following oral administration of 2 mCi of 99 M technetium sulfur colloid in a solid meal (egg and toast). Time points include an immediate baseline, and 1, 2, 3, and 4 hours post ingestion. Findings: There is progressive emptying of the stomach on sequential images. Percentage retention at... One hour is 39% (normal 34.8-91%). Two hours 39% (normal 2.7-60%). Three hours 30% (normal 0.5-28%). Four hours 10% (normal 0-10%). Impression: Nonspecific mildly increased gastric retention at the 3 hour time point. Definitive evidence of clinically significant gastric emptying is not identified. Consensus Recommendations for Gastric Emptying Scintigraphy: A Joint Report of the [place] [employer]astro[employer] Society and the Society of Nuclear Medicine: J. Nucl. Med. Technol. June 2007 vol. 36 no. 1 44-54 Grading for severity of delayed GE based on the 4-h value: grade 1 (mild): 11?20% retention at 4 h grade 2 (moderate): 21?35% retention at 4 h grade 3 (severe): 36?50% retention at 4 h grade 4 (very severe): >50% retention at 4 h. Electronically signed by: Lamonte Cisneros MD (12/30/2017 3:05 PM) [facility]
== END | disposition home or self-care (01) ==
LOC: NM 08:54
PROVIDERS: ATTEND Internal Medicine Gastroenterology
DX: K30 Functional dyspepsia (principal); I10 Essential (primary) hypertension; E11.9 Type 2 diabetes mellitus without complications; E78.00 Pure hypercholesterolemia, unspecified; K21.9 Gastro-esophageal reflux disease without esophagitis; Z87.11 Personal history of peptic ulcer disease; Z86.14 Personal history of Methicillin resistant Staphylococcus aureus infection; Z88.8 Allergy status to other drugs, medicaments and biological substances; Z88.6 Allergy status to analgesic agent; Z82.49 Family history of ischemic heart disease and other diseases of the circulatory system; Z83.3 Family history of diabetes mellitus
CPT/HCPCS: 78264; A9541

== ENCOUNTER → 2021-07-17 | Day surgery (SDC) | payer MEDICARE, BC ==
[~2021-07-17] VITALS: Ht 180.3 cm; Wt 109.0 kg
[~2021-07-17] MED LIST changes: +AMLO-186 PO; -AMLO5TAB7 PO; +CIPR500T2 PO; +CLOP75TA PO; +CYAN-25 PO; -CYAN10005 PO; +FURO20TA3 PO; +GABA600T7 PO; +HYDROmorphone 2 MG/ML INJ. IVP PRN; +INSU100C4 SQ; +IRBE300T23 PO; +IV RINGERS,LACTATED 1000ML 1,000 ML IV SCH; -LINE600T PO; +LINE600T12 PO; +LISI1TAB39 PO; -LISI1TAB7 PO; +MORPHINE SULFATE 2 MG/ML INJ. IVP PRN; +NPH,100V5 SQ; +OMEP20CA16 PO; -OMEP20CA9 PO; +OXYC5CAP PO; +PANT20TA2 PO; +PROCHLORPERAZINE 10 MG/2 ML VIAL. IVP PRN; +PROPOFOL 10 MG/ML (20ML) VIAL. IV ONE; +fentaNYL PF VIAL 100 MCG/2 ML VIAL IVP PRN
[2021-07-17 06:59] VITALS: BP 101/69
[2021-07-17 08:49] VITALS: BP 97/56
--- NOTE | 2021-07-18 16:08 | PATHOLOGY ---
[facility] Accession Number: [id number] . 01 Material submitted: . colon - RANDOM COLON BIOPSY . 01 Clinical history: . COLONOSCOPY . 02 Diagnosis: Segments of colonic mucosa, random colon biopsies: - Melanosis coli. (JPM:pit; 07/18/2021) [facility] 07/18/2021 0833 Local . 02 Comment: Sections of the random colon biopsy reveal multiple segments of colonic mucosa containing several, focally hyperplastic mucosal-associated lymphoid aggregates. There are pigmented histiocytes within the lamina propria consistent with melanosis coli. There is no evidence of a chronic destructive colitis, lymphocytic colitis, or collagenous colitis. (JPM:pit; 07/18/2021) . 02 Electronically signed: . Poli Mcmahon MD, Pathologist NPI- [id number] . 01 Gross description: . The specimen is received in formalin, labeled "Phong Mitchell, random colon BX". Received are multiple segments of pale reed tissue measuring 1.3 x 0.8 x 0.1 cm in aggregate dimensions. The specimen is filtered and entirely submitted in cassette A1. ([facility]; 07/17/2021) [facility] 07/17/2021 1926 Local . 02 Pathologist provided ICD-10: K63.89 . 02 CPT . 914743 Specimen Comment: A courtesy copy of this report has been sent to [phone], [phone] Specimen Comment: 2030 Specimen Comment: Report sent to / DR ROLAND Performed at: 01 [facility] [address] [facility] [address], [place], [place] [id number] MD Jose Lopez MD Phone: [phone] Performed at: 02 [facility] [address] [place], [place] [id number] MD Poli Mcmahon MD Phone: [phone]
== END | disposition home or self-care (01) ==
LOC: ENDOS 06:34
PROVIDERS: ATTEND Internal Medicine Gastroenterology
DX: R19.7 Diarrhea, unspecified (principal); K64.0 First degree hemorrhoids; K63.89 Other specified diseases of intestine; I10 Essential (primary) hypertension; E78.00 Pure hypercholesterolemia, unspecified; E11.9 Type 2 diabetes mellitus without complications; K21.9 Gastro-esophageal reflux disease without esophagitis; M19.90 Unspecified osteoarthritis, unspecified site; Z79.82 Long term (current) use of aspirin; Z79.4 Long term (current) use of insulin; Z79.899 Other long term (current) drug therapy; Z98.890 Other specified postprocedural states; Z88.8 Allergy status to other drugs, medicaments and biological substances
CPT/HCPCS: 45380; J2704; 88305